=== PATIENT | female | born 1980 | race Caucasian/White ===

== ENCOUNTER 2016-04-25 | Emergency (ER) | payer OTHER ==
--- NOTE | 2016-04-25 18:10 | ED ---
General Adult HPI - General Chief complaint: Recheck/Abnormal Lab/Rx Stated complaint: Med refill/dizzy Time Seen by Provider: 04/25/16 18:03 Source: patient, RN notes reviewed Mode of arrival: ambulatory Limitations: no limitations - History of Present Illness Initial comments: 36-year-old female presents emergency department for medication refill. Patient states she is out of her Lexapro. Patient states she started having withdrawal symptoms from this. Patient states she feels dizzy on occasion and some nausea. Patient denies any headache, focal weakness. Patient states that she is no suicidal or homicidal thoughts. She states she's been Lexapro for one year and has been stable. Patient states that without a she's been unable to get a refill from her primary care doctor. Patient states that she is only here for medication refill. - Related Data Home Medications Medication Instructions Recorded Confirmed Escitalopram [Lexapro] 20 mg PO DAILY 04/25/16 04/25/16 Previous Rx's Medication Instructions Recorded Escitalopram [Lexapro] 20 mg PO DAILY #14 tablet 04/25/16 Allergies Allergy/AdvReac Type Severity Reaction Status Date / Time No Known Allergies Allergy Verified 04/25/16 17:33 Review of Systems ROS Statement: Those systems with pertinent positive or pertinent negative responses have been documented in the HPI. ROS Other: All systems not noted in ROS Statement are negative. Past Medical History Past Medical History: No Reported History Past Surgical History: No Surgical Hx Reported Past Psychological History: Anxiety, Depression Smoking Status: Never smoker Past Alcohol Use History: Daily Past Drug Use History: None Reported General Exam General appearance: alert, in no apparent distress Head exam: Present: atraumatic, normocephalic, normal inspection Eye exam: Present: normal appearance, PERRL, EOMI. Absent: scleral icterus, conjunctival injection, periorbital swelling ENT exam: Present: normal exam, normal oropharynx, mucous membranes moist, TM's normal bilaterally, normal external ear exam Neck exam: Present: normal inspection, full ROM. Absent: tenderness, meningismus, lymphadenopathy Respiratory exam: Present: normal lung sounds bilaterally. Absent: respiratory distress, wheezes, rales, rhonchi, stridor Cardiovascular Exam: Present: regular rate, normal rhythm, normal heart sounds. Absent: systolic murmur, diastolic murmur, rubs, gallop, clicks GI/Abdominal exam: Present: soft, normal bowel sounds. Absent: distended, tenderness, guarding, rebound, rigid Extremities exam: Present: normal inspection, full ROM, normal capillary refill. Absent: tenderness, pedal edema, joint swelling, calf tenderness Neurological exam: Present: alert, oriented X3, CN II-XII intact, reflexes normal. Absent: motor sensory deficit Psychiatric exam: Present: normal affect, normal mood Skin exam: Present: warm, dry, intact, normal color. Absent: rash Course Vital Signs 04/25/16 17:30 Temperature 97.9 F Pulse Rate 82 Respiratory 18 Rate Blood Pressure 159/95 O2 Sat by Pulse 98 Oximetry Medical Decision Making - Medical Decision Making Patient she'll female presented for medication refill. Patient is having some withdrawal symptoms from medication. Patient is does not want any testing. Patient will be given prescription and discharge. Disposition Clinical Impression: Encounter for medication refill, Medication withdrawal Disposition: HOME SELF-CARE Condition: Stable Instructions: Medicine Refill (ED) Additional Instructions: Please return to the Emergency Department if symptoms worsen or any other concerns. Prescriptions: Escitalopram [Lexapro] 20 mg PO DAILY #14 tablet Referrals: Robert Mahan MD [Primary Care Provider] - 1-2 days Time of Disposition: 18:10
== END 2016-04-25 18:25 | disposition home or self-care (01) ==
CPT/HCPCS: 99283

== ENCOUNTER 2016-05-29 15:19 | Emergency (ER) | payer OTHER ==
[2016-05-29 15:32] VITALS: RESP 16
[2016-05-29] MEDS ORDERED: SODIUM CHLORIDE 0.9% 1,000 ML IV STA (15:38)
--- NOTE | 2016-05-29 15:47 | ED ---
Abdominal Pain HPI - General Chief Complaint: Abdominal Pain Stated Complaint: Abd Pain/8 weeks Time Seen by Provider: 05/29/16 15:32 Source: patient, RN notes reviewed Mode of arrival: ambulatory Limitations: no limitations - History of Present Illness Initial Comments: 36 yo female presents to the ER with cc of left lower quadrant abdominal pain. Patient states she is currently . . Patient states she woke up with the pain. Patient does not know how far along she is. Patient states she was concerned due to the pain so she thought she should be seen. Patient states she is not currently having any other symptoms at this time. Pain is sharp and mild. No radiation. constant. worse to touch. Patient denies any recent fever, chills, shortness of breath, chest pain, back pain, nausea vomiting, numbness or tingling, dysuria or hematuria, constipation or diarrhea, headaches or visual changes, or any other current symptoms. - Related Data Home Medications Medication Instructions Recorded Confirmed Escitalopram [Lexapro] 20 mg PO DAILY 04/25/16 05/29/16 Omeprazole 20 mg PO DAILY 05/29/16 05/29/16 Allergies Allergy/AdvReac Type Severity Reaction Status Date / Time No Known Allergies Allergy Verified 05/29/16 15:44 Review of Systems ROS Statement: Those systems with pertinent positive or pertinent negative responses have been documented in the HPI. ROS Other: All systems not noted in ROS Statement are negative. Past Medical History Past Medical History: No Reported History Past Surgical History: No Surgical Hx Reported Past Psychological History: Anxiety, Depression Smoking Status: Never smoker Past Alcohol Use History: None Reported Past Drug Use History: None Reported General Exam - General Exam Comments Initial Comments: General: The patient is awake and alert, in no distress, and does not appear acutely ill. Eye: Pupils are equal, round and reactive to light, extra-ocular movements are intact; there is normal conjunctiva bilaterally. No signs of icterus. Ears, nose, mouth and throat: There are moist mucous membranes. Neck: The neck is supple, there is no tenderness. Cardiovascular: There is a regular rate and rhythm. No murmur, rub or gallop is appreciated. Respiratory: Lungs are clear to auscultation, respirations are non-labored, breath sounds are equal. No wheezes, stridor, rales, or rhonchi. Gastrointestinal: Soft, non-distended, mild tenderness in LLQ of the abdomen without masses or organomegaly noted. There is no rebound or guarding present. No CVA tenderness. Bowel sounds are unremarkable. Back: There is no tenderness to palpation in the midline. There is no obvious deformity. No rashes noted. Musculoskeletal: Normal ROM, no tenderness, There is no pedal edema. There is no calf tenderness or swelling. Sensation intact. Pulses equal bilaterally 2+. Neurological: CN II-XII intact, There are no obvious motor or sensory deficits. Coordination appears grossly intact. Speech is normal. Skin: Skin is warm and dry and no rashes or lesions are noted. Psychiatric: Cooperative, appropriate mood & affect, normal judgment. Limitations: no limitations Course Vital Signs 05/29/16 15:28 Temperature 97.8 F Pulse Rate 71 Respiratory 16 Rate Blood Pressure 142/83 O2 Sat by Pulse 99 Oximetry Medical Decision Making - Medical Decision Making 36-year-old female presents to the emergency department complaining of abdominal pain in . At this time ultrasound was reviewed that does show a IUP. This time patient does have mildly elevated liver enzymes. We discussed the patient. We did discuss fine up with PRIVATE INQUIRY AGENT for reevaluation of this. Patient stated that she understood all questions were answered. She'll be discharged. - Lab Data Result diagrams: 05/29/16 15:56 05/29/16 15:56 Lab Results 05/29/16 05/29/16 05/29/16 Range/Units 15:56 15:56 15:56 WBC 8.1 (3.8-10.6) k/uL RBC 4.20 (3.80-5.40) m/uL Hgb 13.0 (11.4-16.0) gm/dL Hct 39.0 (34.0-46.0) % MCV 92.8 (80.0-100.0) fL MCH 30.9 (25.0-35.0) pg MCHC 33.3 (31.0-37.0) g/dL RDW 13.7 (11.5-15.5) % Plt Count 230 (150-450) k/uL Neutrophils % 66 % Lymphocytes % 26 % Monocytes % 4 % Eosinophils % 1 % Basophils % 0 % Neutrophils # 5.4 (1.3-7.7) k/uL Lymphocytes # 2.1 (1.0-4.8) k/uL Monocytes # 0.3 (0-1.0) k/uL Eosinophils # 0.1 (0-0.7) k/uL Basophils # 0.0 (0-0.2) k/uL Sodium 141 (137-145) mmol/L Potassium 4.2 (3.5-5.1) mmol/L Chloride 101 (98-107) mmol/L Carbon Dioxide 27 (22-30) mmol/L Anion Gap 13 mmol/L BUN 9 (7-17) mg/dL Creatinine 0.63 (0.52-1.04) mg/dL Est GFR (MDRD) Af Amer >60 (>60 ml/min/1.73 sqM) Est GFR (MDRD) Non-Af >60 (>60 ml/min/1.73 sqM) Glucose 91 (74-99) mg/dL Calcium 9.2 (8.4-10.2) mg/dL Total Bilirubin 0.5 (0.2-1.3) mg/dL AST 115 H (14-36) U/L ALT 65 H (9-52) U/L Alkaline Phosphatase 94 (38-126) U/L Total Protein 7.5 (6.3-8.2) g/dL Albumin 4.3 (3.5-5.0) g/dL Urine Color Yellow Urine Appearance Cloudy H (Clear) Urine pH 6.5 (5.0-8.0) Ur Specific [place] 1.016 (1.001-1.035) Urine Protein Negative (Negative) Urine Glucose (UA) Negative (Negative) Urine Ketones Negative (Negative) Urine Blood Negative (Negative) Urine Nitrate Negative (Negative) Urine Bilirubin Negative (Negative) Urine Urobilinogen <2.0 (<2.0) mg/dL Ur Leukocyte Esterase Trace H (Negative) Urine WBC 2 (0-5) /hpf Ur Squamous Epith Cells 11 H (0-4) /hpf Urine Mucus Rare H (None) /hpf - Radiology Data Radiology results: report reviewed, image reviewed Disposition Clinical Impression: Abdominal pain complicating , Elevated liver enzymes Disposition: HOME SELF-CARE Condition: Stable Instructions: Abdominal Pain in (ED) Additional Instructions: Please use medication as discussed. Please follow up with family doctor if symptoms have not improved over the next two days. Please return to the emergency room if your symptoms increase or worsen or for any other concerns. Referrals: Robert Mahan MD [Primary Care Provider] - 1-2 days Time of Disposition: 16:45
[2016-05-29 16:07] LABS: Appearance,Urine Cloudy (Clear); Bilirubin,Urine Negative (Negative); Glucose,Urine (UA) Negative (Negative); Ketones,Urine Negative (Negative); Leukocyte Esterase,Urine Trace (Negative); Mucus,Urine Rare /hpf; Nitrite,Urine Negative (Negative); PH, Urine 6.5 (5.0-8.0); Particle Count 2622; Protein,Urine Negative (Negative); Specific Gravity,Urine 1.016 (1.001-1.035); Squamous Epithelial Cell,Urine 11 /hpf (0-4); UA Billing (MACRO vs. MICRO) MICRO; Urobilinogen,Urine <2.0 mg/dL (<2.0); WBC,Urine 2 /hpf (0-5)
[2016-05-29 16:08] LABS: Basophils % (A) 0 %; CHCM 34.7; Eosinophils # (A) 0.1 k/uL (0-0.7); Eosinophils % (A) 1 %; HDW 2.48; Luc # (Auto) 0.17; Luc % (Auto) 2; Lymphocytes # (A) 2.1 k/uL (1.0-4.8); Lymphocytes % (A) 26 %; MCH 30.9 pg (25.0-35.0); MCHC 33.3 g/dL (31.0-37.0); MCV 92.8 fL (80.0-100.0); Mean Platelet Volume 6.3; Monocytes # (A) 0.3 k/uL (0-1.0); Monocytes % (A) 4 %; Neutrophils # (A) 5.4 k/uL (1.3-7.7); Neutrophils % (A) 66 %; RDW 13.7 % (11.5-15.5); WBC 8.1 k/uL (3.8-10.6); WBC (Perox) 8.19
[2016-05-29 16:16] LABS: ALT 65 U/L (9-52); AST 115 U/L (14-36); Alkaline Phosphatase 94 U/L (38-126); Anion Gap 13 mmol/L; Blood Urea Nitrogen 9 mg/dL (7-17); Calcium 9.2 mg/dL (8.4-10.2); Carbon Dioxide 27 mmol/L (22-30); Chloride 101 mmol/L (98-107); Glucose 91 mg/dL (74-99); Non-African American GFR(MDRD) >60 (>60 ml/min/1.73 sqM); Potassium 4.2 mmol/L (3.5-5.1); Sodium 141 mmol/L (137-145); Total Bilirubin 0.5 mg/dL (0.2-1.3); Total Protein 7.5 g/dL (6.3-8.2)
--- NOTE | 2016-05-29 16:34 | US ---
EXAMINATION TYPE: US OB <= 14 wk fetus DATE OF EXAM: 05/29/2016 4:18 PM COMPARISON: NONE CLINICAL HISTORY: Pain. LLQ pain with EXAM PERFORMED: EXAM MEASUREMENTS: GESTATIONAL AGE / DATING Physician Established: not established Dates by LMP: unsure of dates Dates by First Scan: this is first scan Dates by Current Scan for: (6 weeks/1 days) EDC: 01/21/2017 MATERNAL ANATOMY Uterus: 10.9 x 5.3 x 6.8 cm Right Ovary: 2.6 x 1.6 x 1.8 cm Left Ovary: 2.9 x 2.0 x 1.9 cm Post CDS / Adnexa: wnl Presence of free fluid: none GESTATION / SURVEY CRL: 0.4 cm (6 weeks/1 days) MSD: 1.8cm (6 weeks/4 days) Yolk Sac (normal less than 6mm): 0.3 cm Heart Rate: 116 bpm Rhythm: Normal IUP: Viable IUP Date of LMP: unknown Beta HcG (if available): not available TECHNOLOGIST IMPRESSION: single viable IUP IMPRESSION: The ultrasound gestational age is 6 weeks 1 day. I see no complicating process.
[2016-05-29 17:00] LABS: HCG,Quantitative Serum 19780.7 mIU/mL
[2016-05-29 17:27] VITALS: BP 151/80; PULSE 73; TEMP 98.2
== END 2016-05-29 17:38 | disposition home or self-care (01) ==
LOC: EC 15:19
DX: O26.891 Other specified pregnancy related conditions, first trimester (principal); R74.8 Abnormal levels of other serum enzymes; R10.32 Left lower quadrant pain; O99.341 Other mental disorders complicating pregnancy, first trimester; F32.9 Major depressive disorder, single episode, unspecified; F41.9 Anxiety disorder, unspecified; Z3A.01 Less than 8 weeks gestation of pregnancy; Z79.899 Other long term (current) drug therapy
CPT/HCPCS: 36415; 76801; 80053; 81001; 84702; 85025; 86900; 86901; 87086; 96360; 99284

== ENCOUNTER → 2016-08-31 | Outpatient (CLI) | payer OTHER ==
[2016-08-31 13:38] LABS: CH 31.7; CHCM 34.4; HCT 34.4 % (34.0-46.0); HDW 2.94; HGB 11.4 gm/dL (11.4-16.0); MCH 30.6 pg (25.0-35.0); MCV 92.7 fL (80.0-100.0); Mean Platelet Volume 6.4; RBC 3.71 m/uL (3.80-5.40); RDW 13.2 % (11.5-15.5); WBC 8.3 k/uL (3.8-10.6)
[2016-08-31 14:00] LABS: Glucose 95 mg/dL (74-99); Non-African American GFR(MDRD) >60 (>60 ml/min/1.73 sqM)
[2016-08-31 14:31] LABS: Hepatitis B Surface Ag Index 0.06
[2016-09-01 07:17] LABS: HIV-1/HIV-2 Ab Screen NONREAC (NON REAC)
[2016-09-01 07:25] LABS: Toxoplasma Antibody (IgG) <3.0 IU/mL (<7.2)
== END | disposition home or self-care (01) ==
LOC: LABWHC1 12:21
PROVIDERS: ATTEND Obstetrics & Gynecology
DX: Z34.92 Encounter for supervision of normal pregnancy, unspecified, second trimester (principal)
CPT/HCPCS: 36415; 82565; 82947; 85027; 86762; 86777; 86778; 86780; 86850; 86900; 86901; 87340; 87389

== ENCOUNTER → 2016-11-24 | Outpatient (CLI) | payer OTHER ==
[2016-11-24 17:03] LABS: CH 29.5; CHCM 33.3; HCT 31.6 % (34.0-46.0); HDW 3.09; HGB 10.4 gm/dL (11.4-16.0); MCH 29.4 pg (25.0-35.0); MCHC 32.9 g/dL (31.0-37.0); MCV 89.3 fL (80.0-100.0); Mean Platelet Volume 7.4; RBC 3.54 m/uL (3.80-5.40); RDW 13.8 % (11.5-15.5); WBC 8.7 k/uL (3.8-10.6)
[2016-11-24 19:15] LABS: Hemoglobin A1C 5.5 % (4.2-6.1)
== END | disposition home or self-care (01) ==
LOC: LABWHC1 16:26
PROVIDERS: ATTEND Obstetrics & Gynecology
DX: Z36 Encounter for antenatal screening of mother (principal); Z3A.00 Weeks of gestation of pregnancy not specified
CPT/HCPCS: 36415; 83036; 85027

== ENCOUNTER → 2016-12-10 | Outpatient (CLI) | payer OTHER ==
--- NOTE | 2016-12-10 14:05 | US ---
EXAMINATION TYPE: US OB >= 14 wk fetus DATE OF EXAM: 12/10/2016 COMPARISON: 05/29/2016 CLINICAL HISTORY: O28.8 MITALI BORDERLINE LOW TECHNIQUE: Transabdominal (TA) GESTATIONAL AGE / DATING Physician Established: Patient unsure Dates by LMP: unknown Dates by First Scan: (34 weeks/0 days) EDC: 01/21/17 Dates by Current Scan: (35 weeks/6 days) EDC: 01/08/17 SURVEY IUP: Single PLACENTA: Fundal PREVIA: No Previa MITALI: 7.7 cm CERVICAL LENGTH (transabdominal: norm > 3.0cm): Technologist forgot to measure, office phoned, left message with Janalakshmi at 1:47 to send patient back after her appointment for measurement if needed. Cervix is documented as 3.5 cm, within normal limits. BIOMETRY PRESENTATION: Vertex LIE: Longitudinal BPD: 8.5 cm 34 weeks / 2 days HC: 31.2 cm 35 weeks / 0 days AC: 32.2 cm 36 weeks / 1 days FL: 7.4 cm 38 weeks / 0 days ESTIMATED WEIGHT IN GRAMS: 2880 grams ESTIMATED WEIGHT IN LBS/OZS: 6 lbs. 6 oz. WEIGHT PERCENTAGE BASED ON ESTABLISHED DATES: 95% HC/AC: 0.97 FL/AC: 23 HEART RATE: 152 bpm RHYTHM: Normal MATERNAL WALL MEASUREMENT: 4.0 cm from skin to anterior uterine wall (if exam limited due to body hab itus). Office also aware of low MITALI, spoke with Venessa at 1:35pm. IMPRESSION: 1. Borderline oligohydramnios with MITALI of 7.7. 2. Single live intrauterine with a sonographic age of 35 weeks and 6 days and estimated yudith e of delivery of 01/08/2017 which is slightly discordant with the first exam, however menstrual age is unknown.
== END ==
LOC: RADUSWWP 12:58
PROVIDERS: ATTEND Obstetrics & Gynecology
DX: O41.03X0 Oligohydramnios, third trimester, not applicable or unspecified (principal); Z3A.35 35 weeks gestation of pregnancy
CPT/HCPCS: 76805

== ENCOUNTER → 2016-12-21 | Outpatient (CLI) | payer OTHER ==
--- NOTE | 2016-12-21 17:12 | US ---
EXAMINATION TYPE: US OB >= 14 wk fetus DATE OF EXAM: 12/21/2016 COMPARISON: 05/29/2016 CLINICAL HISTORY: O28.8 ABN Finding On Screening/ O36.63XO TECHNIQUE: Transabdominal (TA) GESTATIONAL AGE / DATING Physician Established: (35 weeks/4 days) EDC: 01/21/2017 Dates by LMP: unknown Dates by First Scan: (37 weeks/3 days) EDC: 01/08/2017 Dates by Current Scan: (36 weeks/6 days) EDC: 01/12/2017 SURVEY IUP: Single PLACENTA: Fundal PREVIA: No Previa MITALI: 8.8 cm Normal CERVICAL LENGTH (transabdominal: norm > 3.0cm): 3.7 cm BIOMETRY PRESENTATION: Vertex BPD: 8.6 cm 34 weeks / 5 days HC: 32.5 cm 36 weeks / 6 days AC: 33.4 cm 37 weeks / 3 days FL: 7.5 cm 38 weeks / 3 days ESTIMATED WEIGHT IN GRAMS: 3141 grams ESTIMATED WEIGHT IN LBS/OZS: 6 lbs. 15 oz. WEIGHT PERCENTAGE BASED ON ESTABLISHED DATES: 89% HC/AC: 0.9 Normal FL/AC: 22% Normal HEART RATE: 133 bpm RHYTHM: Normal growth according to dates IMPRESSION: The fetus is large and 89 percentile by weight. The possibility of mild macrosomia should be consider ed.
== END | disposition home or self-care (01) ==
LOC: RADUSWWP 16:15
PROVIDERS: ATTEND Obstetrics & Gynecology
DX: O36.63X0 Maternal care for excessive fetal growth, third trimester, not applicable or unspecified (principal); Z3A.37 37 weeks gestation of pregnancy
CPT/HCPCS: 76805

== ENCOUNTER → 2017-10-13 | Outpatient (CLI) | payer OTHER | END | disposition home or self-care (01) | LOC: LABWHC1 14:11 | PROVIDERS: ATTEND Pathology Anatomic Pathology & Clinical Pathology | DX: Z02.81 Encounter for paternity testing (principal) | CPT/HCPCS: 36415 ==

== ENCOUNTER 2018-03-07 16:45 | Emergency (ER) | payer OTHER ==
[2018-03-07 17:08] VITALS: TEMP 98.3
--- NOTE | 2018-03-07 19:06 | ED ---
General Adult HPI - General Chief complaint: Extremity Injury, Lower Stated complaint: Fell hurt both ankles Source: patient, RN notes reviewed Mode of arrival: wheelchair Limitations: no limitations - History of Present Illness Initial comments: This is a 38-year-old female who presents emergency Department complaining of bilateral ankle pain. Patient states she tripped on stairs and twisted both of her ankles. Patient states the medial aspect of both ankles are tender she states the right is worse in the left even though the left appears to be more swollen she states is chronically swollen from a previous injury. Patient denies any upper leg pain or knee pain. Patient denies hitting her head or neck pain patient denies any other complaints at this time. - Related Data Home Medications Medication Instructions Recorded Confirmed Omeprazole 40 mg PO DAILY 03/07/18 03/07/18 Allergies Allergy/AdvReac Type Severity Reaction Status Date / Time No Known Allergies Allergy Verified 03/07/18 19:15 Review of Systems ROS Statement: Those systems with pertinent positive or pertinent negative responses have been documented in the HPI. ROS Other: All systems not noted in ROS Statement are negative. Past Medical History Past Medical History: No Reported History History of Any Multi-Drug Resistant Organisms: None Reported Past Surgical History: No Surgical Hx Reported Past Anesthesia/Blood Transfusion Reactions: No Reported Reaction Past Psychological History: Anxiety, Depression Smoking Status: Former smoker Past Alcohol Use History: None Reported Past Drug Use History: None Reported - Past Family History Father History Unknown: Yes Family Medical History: No Reported History General Exam - General Exam Comments Initial Comments: GENERAL Patient is well-developed and well-nourished. Patient is in mild distress. EYES Patient's pupils are equal and round. Extraocular motion is intact SKIN Unremarkable NEURO The patient is alert and oriented 3 PYSCH Patient has normal interpersonal interactions. MUSCULOSKELETAL Bilateral lateral malleolus tenderness. There is some swelling bilaterally. No pain in the foot no pain in the proximal leg no pain in the knee Limitations: no limitations Course Vital Signs 03/07/18 17:06 Temperature 98.3 F Pulse Rate 90 Respiratory 20 Rate Blood Pressure 138/96 O2 Sat by Pulse 100 Oximetry Medical Decision Making - Medical Decision Making X-rays of both ankle showed no acute fracture or dislocation. Disposition Clinical Impression: Ankle sprain Disposition: HOME SELF-CARE Condition: Good Instructions: Ankle Sprain (ED) Additional Instructions: Patient should take Motrin and Tylenol when necessary for pain Is patient prescribed a controlled substance at d/c from ED?: No Referrals: Robert Mahan MD [Primary Care Provider] - 1-2 days Time of Disposition: 20:36
[2018-03-07] MEDS ORDERED: IBUPROFEN 600 MG TAB PO STA (19:07)
--- NOTE | 2018-03-07 20:08 | XR ---
PROCEDURE: XR ankle complete bilateral total 6 views DATE AND TIME: 03/07/2018 7:16 PM CLINICAL INDICATION: PH[facility] Pain after injury TECHNIQUE: Department protocol. COMPARISON: None RIGHT ANKLE FINDINGS: There is no fracture or malalignment. The soft tissues are unremarkable. LEFT ANKLE FINDINGS: There is no fracture or malalignment. The soft tissues are unremarkable. IMPRESSION: NO ACUTE PROCESS, BILATERAL ANKLES.
[2018-03-07 21:04] VITALS: BP 148/90; PULSE 80; RESP 16
== END 2018-03-07 21:00 | disposition home or self-care (01) ==
LOC: EC 16:45
DX: S93.402A Sprain of unspecified ligament of left ankle, initial encounter (principal); S93.401A Sprain of unspecified ligament of right ankle, initial encounter; Z87.891 Personal history of nicotine dependence; Z79.899 Other long term (current) drug therapy; X50.1XXA Overexertion from prolonged static or awkward postures, initial encounter; Y92.009 Unspecified place in unspecified non-institutional (private) residence as the place of occurrence of the external cause
CPT/HCPCS: 99283

== ENCOUNTER → 2018-05-03 | Outpatient (CLI) | payer OTHER ==
--- NOTE | 2018-05-03 13:34 | US ---
EXAMINATION TYPE: US abdomen complete DATE OF EXAM: 05/03/2018 COMPARISON: NONE CLINICAL HISTORY: I51.7 cardiomegaly R94.5 Abn results of LFT. EXAM MEASUREMENTS: Liver Length: 19.4 cm Gallbladder Wall: 0.1 cm CBD: 0.3 cm Spleen: 11.6 cm Right Kidney: 13.0 x 4.5 x 5.2 cm Left Kidney: 11.4 x 5.1 x 4.3 cm Patient of very large body habitus, technically difficult and limited study. Pancreas: Tail obscured by overlying bowel gas Liver: Increased attenuation, decreased visualization of vessels suggestive of fatty infiltrate, hep atomegaly Gallbladder: wnl Evidence for sonographic Grant's sign: no CBD: wnl Spleen: wnl Right Kidney: No hydronephrosis or masses seen Left Kidney: No hydronephrosis or masses seen Upper IVC: wnl Abd Aorta: distal and bifurcation obscured by overlying bowel gas The intrahepatic portion of the IVC and proximal abdominal aorta are within normal limits. There is no evidence of cholelithiasis. Common bile duct is unremarkable. The visualized portions of the geiger creas are homogenous. The spleen is unremarkable. Kidneys are symmetric and free of hydronephrosis. No renal lesions are seen. IMPRESSION: Sonographic findings most commonly related to hepatic steatosis appearing moderate in deg ree. Correlate with liver function test results.
--- NOTE | 2018-05-03 19:08 | ECHOF ---
Referral Reason:I51.7 Cardiomegally R94.5 Abn results of LFT MEASUREMENTS -------- HEIGHT: 175.3 cm WEIGHT: 113.4 kg BP: RVIDd: 2.2 cm (< 3.3) IVSd: 1.2 cm (0.6 - 1.1) LVIDd: 5.4 cm (3.9 - 5.3) LVPWd: 1.2 cm (0.6 - 1.1) IVSs: 1.5 cm LVIDs: 3.6 cm LVPWs: 1.6 cm LAESV Index (A-L): 25.23 ml/m Ao Diam: 3.5 cm (2.0 - 3.7) AV Cusp: 2.1 cm (1.5 - 2.6) LA Diam: 3.0 cm (2.7 - 3.8) MV EXCURSION: 18.048 mm (> 18.000) MV EF SLOPE: 125 mm/s (70 - 150) EPSS: 0.5 cm MV E Louie: 0.73 m/s MV DecT: 248 ms MV A Louie: 0.65 m/s MV E/A Ratio: 1.11 RAP: 5.00 mmHg RVSP: 12.04 mmHg FINDINGS -------- Sinus rhythm. This was a technically adequate study. The left ventricular size is normal. There is mild concentric left ventricular hypertrophy. Overa ll left ventricular systolic function is normal with, an EF between 55 - 60 %. The right ventricle is normal in size and function. Normal LA size by volume 22+/-6 ml/m2. The right atrium is normal in size. The aortic valve is trileaflet, and appears structurally normal. No aortic stenosis or regurgitation. The mitral valve leaflets are mildly thickened. There is trace to mild mitral regurgitation. Trace tricuspid regurgitation present. Right ventricular systolic pressure is normal at < 35 mmHg. There is no evidence of pulmonary hypertension. Trace/mild (physiologic) pulmonic regurgitation. The aortic root size is normal. Normal inferior vena cava with normal inspiratory collapse consistent with estimated right atrial pre ssure of 5 mmHg. There is no pericardial effusion. CONCLUSIONS -------- 1. Sinus rhythm. 2. This was a technically adequate study. 3. The left ventricular size is normal. 4. There is mild concentric left ventricular hypertrophy. 5. Overall left ventricular systolic function is normal with, an EF between 55 - 60 %. 6. Normal LA size by volume 22+/-6 ml/m2. 7. The aortic valve is trileaflet, and appears structurally normal. No aortic stenosis or regurgitati on. 8. The mitral valve leaflets are mildly thickened. 9. There is trace to mild mitral regurgitation. 10. Trace tricuspid regurgitation present. 11. Right ventricular systolic pressure is normal at < 35 mmHg. 12. There is no evidence of pulmonary hypertension. 13. Trace/mild (physiologic) pulmonic regurgitation. 14. The aortic root size is normal. 15. There is no pericardial effusion. COAL DIGGER: Freddie Rendon RDCS
== END | disposition home or self-care (01) ==
LOC: RADUSMAIN 12:11
PROVIDERS: ATTEND Family Medicine
DX: I34.0 Nonrheumatic mitral (valve) insufficiency (principal); R94.5 Abnormal results of liver function studies
CPT/HCPCS: 76700; 93306

== ENCOUNTER → 2020-01-18 | Outpatient (CLI) | payer OTHER ==
[2020-01-18 16:03] LABS: Appearance,Urine Clear (Clear); Bacteria,Urine Rare /hpf; Bilirubin,Urine Negative (Negative); Blood,Urine Negative (Negative); Color,Urine Yellow; Glucose,Urine (UA) Negative (Negative); Ketones,Urine Negative (Negative); Leukocyte Esterase,Urine Negative (Negative); Mucus,Urine Moderate /hpf; Nitrite,Urine Negative (Negative); PH, Urine 6.5 (5.0-8.0); Protein,Urine 1+ (Negative); RBC,Urine 1 /hpf (0-5); Specific Gravity,Urine 1.022 (1.001-1.035); Squamous Epithelial Cell,Urine 4 /hpf (0-4); WBC,Urine 1 /hpf (0-5)
--- NOTE | 2020-01-18 17:00 | XR ---
EXAMINATION TYPE: XR lumbar spine 2 or 3V DATE OF EXAM: 01/18/2020 COMPARISON: None HISTORY: Pain radiating right side TECHNIQUE: Three-view lumbar spine FINDINGS: There appears to be a transitional thoracic vertebral level. There 5 lumbar-type vertebral bodies. Pedicles are intact. Disc heights are preserved. Vertebral body heights are preserved. IMPRESSION: 1. Normal three-view lumbar spine
--- NOTE | 2020-01-18 17:02 | XR ---
EXAMINATION TYPE: XR thoracic spine complete DATE OF EXAM: 01/18/2020 COMPARISON: Lumbar spine same date HISTORY: Back pain TECHNIQUE: 3 view thoracic spine FINDINGS: There are 12 thoracic type vertebral bodies. The L1 level appears to be a transitional thor acic type vertebral body. Pedicles are intact. Disc heights are preserved. Vertebral body heights are preserved. Alignment is normal. IMPRESSION: 1. Normal thoracic spine
== END | disposition home or self-care (01) ==
LOC: LABWHC1 14:44
PROVIDERS: ATTEND Physician Assistant
DX: S23.3XXA Sprain of ligaments of thoracic spine, initial encounter (principal); S39.012A Strain of muscle, fascia and tendon of lower back, initial encounter; N91.2 Amenorrhea, unspecified
CPT/HCPCS: 72072; 72100; 81001; 81025

== ENCOUNTER 2020-03-10 06:37 | Emergency (ER) | payer OTHER ==
[2020-03-10] MEDS ORDERED: SODIUM CHLORIDE 0.9% 500 ML 500 ML IV ONE (06:59)
[2020-03-10] MEDS ORDERED: MORPHINE SULFATE 2 MG/ML SYRINGE IVP STA (07:00)
--- NOTE | 2020-03-10 07:08 | ED ---
Abdominal Pain HPI - General Chief Complaint: Abdominal Pain Stated Complaint: Abdominal pain Time Seen by Provider: 03/10/20 06:53 Source: patient Mode of arrival: wheelchair Limitations: no limitations - History of Present Illness Initial Comments: 40-year-old female presenting today for chief complaint of lower pelvic pain. Patient states is around the time she she menstruates she has not bleeding. Patient states that it is a cramping sensation such as menstrual cramping. She denies any vaginal discharge, fevers. States she did puke once due to the pain, but does not currently feel nauseated. Denies diarrhea. Denies upper abdominal pain, chest pain or SOB. Denies concern for . Patient states as she has been getting older her cramping has been getting worse. Patient denies additional complaints. Upon arrival she appears well nontoxic in no acute distress. - Related Data Home Medications Medication Instructions Recorded Confirmed RX: Omeprazole 40 mg PO DAILY 03/07/18 03/10/20 RX: FLUoxetine HCL [PROzac] 20 mg PO DAILY 03/10/20 03/10/20 Allergies Allergy/AdvReac Type Severity Reaction Status Date / Time No Known Allergies Allergy Verified 03/10/20 07:34 Review of Systems ROS Statement: Those systems with pertinent positive or pertinent negative responses have been documented in the HPI. ROS Other: All systems not noted in ROS Statement are negative. Past Medical History Past Medical History: No Reported History Additional Past Medical History / Comment(s): fatty liver History of Any Multi-Drug Resistant Organisms: None Reported Past Surgical History: No Surgical Hx Reported Past Anesthesia/Blood Transfusion Reactions: No Reported Reaction Past Psychological History: Anxiety, Depression Smoking Status: Never smoker Past Alcohol Use History: Abuse, Daily Past Drug Use History: None Reported - Past Family History Father History Unknown: Yes Family Medical History: No Reported History General Exam - General Exam Comments Initial Comments: General: The patient is awake and alert, in no distress Eye: Pupils are equal, round and reactive to light, extra-ocular movements are intact. No nystagmus. There is normal conjunctiva bilaterally. No signs of i cterus. Ears, nose, mouth and throat: There are moist mucous membranes and no oral lesions. Neck: The neck is supple, there is no tenderness or JVD. Cardiovascular: There is a regular rate and rhythm. No murmur, rub or gallop is appreciated. Respiratory: Lungs are clear to auscultation, respirations are non-labored, breath sounds are equal. No wheezes, stridor, rales, or rhonchi. Gastrointestinal: Soft, non-distended, mild mildline tenderness to palpation of abdomen just superior to the mons pubis, no unilateral pain. Abdomen is without masses or organomegaly noted. There is no rebound or guarding present. Musculoskeletal: Normal ROM, no tenderness. Strength 5/5. Sensation intact. Radial pulses equal bilaterally 2+. Neurological: A&O x 3. CN II-XII intact, There are no obvious motor or sensory deficits. Coordination appears grossly intact. Speech is normal. Skin: Skin is warm and dry and no rashes or lesions are noted. Psychiatric: Cooperative, appropriate mood & affect, normal judgment. Limitations: no limitations Course Vital Signs 03/10/20 03/10/20 06:44 07:30 Temperature 98 F 98.0 F Pulse Rate 77 62 Respiratory 17 14 Rate Blood Pressure 138/93 153/98 O2 Sat by Pulse 95 95 Oximetry - Reevaluation(s) Reevaluation #1: Pt states she is feeling much better after medicine--appears comfortable restin g. 03/10/20 08:06 Reevaluation #2: Pt states she continues to feel well, i discussed the US results and offered CT. Pt states she thinks this is consistent with the time she menstruates and would like to trial going home since there is improvement. 03/10/20 08:30 Medical Decision Making - Medical Decision Making 40yo female presenting pelvic cramping. US (-). No unilateral pain. No leukocytosis. no fevers. patient pain improved, refused CT. Patient denies vaginal discharge, concern for STI, vaginal bleeding. Patient case discussed with Dr. Pelletier who is agreeable to discharge with strict return parameters. Pt tolerating oral intake. - Lab Data Result diagrams: 03/10/20 07:12 03/10/20 07:12 Lab Results 03/10/20 03/10/20 03/10/20 Range/Units 07:12 07:12 07:12 WBC 4.3 (3.8-10.6) k/uL RBC 4.27 (3.80-5.40) m/uL Hgb 11.7 (11.4-16.0) gm/dL Hct 36.3 (34.0-46.0) % MCV 85.0 (80.0-100.0) fL MCH 27.3 (25.0-35.0) pg MCHC 32.2 (31.0-37.0) g/dL RDW 16.3 H (11.5-15.5) % Plt Count 214 (150-450) k/uL MPV 6.6 Neutrophils % 67 % Lymphocytes % 25 % Monocytes % 5 % Eosinophils % 2 % Basophils % 1 % Neutrophils # 2.8 (1.3-7.7) k/uL Lymphocytes # 1.1 (1.0-4.8) k/uL Monocytes # 0.2 (0-1.0) k/uL Eosinophils # 0.1 (0-0.7) k/uL Basophils # 0.0 (0-0.2) k/uL Anisocytosis Slight Sodium (137-145) mmol/L Potassium (3.5-5.1) mmol/L Chloride (98-107) mmol/L Carbon Dioxide (22-30) mmol/L Anion Gap mmol/L BUN (7-17) mg/dL Creatinine (0.52-1.04) mg/dL Est GFR (CKD-EPI)AfAm (>60 ml/min/1.73 sqM) Est GFR (CKD-EPI)NonAf (>60 ml/min/1.73 sqM) Glucose (74-99) mg/dL Calcium (8.4-10.2) mg/dL Total Bilirubin (0.2-1.3) mg/dL AST (14-36) U/L ALT (4-34) U/L Alkaline Phosphatase (38-126) U/L Total Protein (6.3-8.2) g/dL Albumin (3.5-5.0) g/dL Lipase (23-300) U/L Urine Color Yellow Urine Appearance Cloudy H (Clear) Urine pH 6.5 (5.0-8.0) Ur Specific [place] 1.014 (1.001-1.035) Urine Protein Trace H (Negative) Urine Glucose (UA) Negative (Negative) Urine Ketones Negative (Negative) Urine Blood Negative (Negative) Urine Nitrite Negative (Negative) Urine Bilirubin Negative (Negative) Urine Urobilinogen <2.0 (<2.0) mg/dL Ur Leukocyte Esterase Negative (Negative) Urine RBC 1 (0-5) /hpf Urine WBC 3 (0-5) /hpf Ur Squamous Epith Cells 3 (0-4) /hpf Hyaline Casts 1 (0-2) /lpf Urine Mucus Occasional H (None) /hpf Urine HCG, Qual Not Detected (Not Detectd) 03/10/20 03/10/20 Range/Units 07:12 07:12 WBC (3.8-10.6) k/uL RBC (3.80-5.40) m/uL Hgb (11.4-16.0) gm/dL Hct (34.0-46.0) % MCV (80.0-100.0) fL MCH (25.0-35.0) pg MCHC (31.0-37.0) g/dL RDW (11.5-15.5) % Plt Count (150-450) k/uL MPV Neutrophils % % Lymphocytes % % Monocytes % % Eosinophils % % Basophils % % Neutrophils # (1.3-7.7) k/uL Lymphocytes # (1.0-4.8) k/uL Monocytes # (0-1.0) k/uL Eosinophils # (0-0.7) k/uL Basophils # (0-0.2) k/uL Anisocytosis Sodium 141 (137-145) mmol/L Potassium 3.5 (3.5-5.1) mmol/L Chloride 101 (98-107) mmol/L Carbon Dioxide 30 (22-30) mmol/L Anion Gap 10 mmol/L BUN 4 L (7-17) mg/dL Creatinine 0.55 (0.52-1.04) mg/dL Est GFR (CKD-EPI)AfAm >90 (>60 ml/min/1.73 sqM) Est GFR (CKD-EPI)NonAf >90 (>60 ml/min/1.73 sqM) Glucose 202 H (74-99) mg/dL Calcium 9.1 (8.4-10.2) mg/dL Total Bilirubin 0.5 (0.2-1.3) mg/dL AST 162 H (14-36) U/L ALT 40 H (4-34) U/L Alkaline Phosphatase 129 H (38-126) U/L Total Protein 8.4 H (6.3-8.2) g/dL Albumin 4.3 (3.5-5.0) g/dL Lipase 101 (23-300) U/L Urine Color Urine Appearance (Clear) Urine pH (5.0-8.0) Ur Specific [place] (1.001-1.035) Urine Protein (Negative) Urine Glucose (UA) (Negative) Urine Ketones (Negative) Urine Blood (Negative) Urine Nitrite (Negative) Urine Bilirubin (Negative) Urine Urobilinogen (<2.0) mg/dL Ur Leukocyte Esterase (Negative) Urine RBC (0-5) /hpf Urine WBC (0-5) /hpf Ur Squamous Epith Cells (0-4) /hpf Hyaline Casts (0-2) /lpf Urine Mucus (None) /hpf Urine HCG, Qual (Not Detectd) Disposition Clinical Impression: Pelvic pain Disposition: HOME SELF-CARE Condition: Good Instructions (If sedation given, give patient instructions): Nav (ED), Acute Abdominal Pain (ED) Additional Instructions: Please use medication as discussed. Please follow-up with family doctor in the next 2 days, OBGYN in next 2 weeks- you are to return for increasing pain/persistent pain to the ER, or if you develop fevers. Please return to emergency room if the symptoms increase or worsen or for any other concerns. Is patient prescribed a controlled substance at d/c from ED?: No Referrals: Robert Mahan MD [Primary Care Provider] - 1-2 days Time of Disposition: 08:39
[2020-03-10 07:30] LABS: Anisocytosis Slight; Basophils % (A) 1 %; Eosinophils # (A) 0.1 k/uL (0-0.7); Eosinophils % (A) 2 %; HCT 36.3 % (34.0-46.0); HGB 11.7 gm/dL (11.4-16.0); Lymphocytes # (A) 1.1 k/uL (1.0-4.8); Lymphocytes % (A) 25 %; MCH 27.3 pg (25.0-35.0); MCHC 32.2 g/dL (31.0-37.0); Mean Platelet Volume 6.6; Monocytes # (A) 0.2 k/uL (0-1.0); Monocytes % (A) 5 %; Neutrophils # (A) 2.8 k/uL (1.3-7.7); Neutrophils % (A) 67 %; Platelet Count 214 k/uL (150-450); RBC 4.27 m/uL (3.80-5.40); RDW 16.3 % (11.5-15.5); WBC 4.3 k/uL (3.8-10.6)
[2020-03-10 07:36] VITALS: RESP 14
[2020-03-10 07:50] LABS: Appearance,Urine Cloudy (Clear); Bilirubin,Urine Negative (Negative); Blood,Urine Negative (Negative); Color,Urine Yellow; Glucose,Urine (UA) Negative (Negative); Hyaline Casts,Urine 1 /lpf (0-2); Ketones,Urine Negative (Negative); Leukocyte Esterase,Urine Negative (Negative); Mucus,Urine Occasional /hpf; Nitrite,Urine Negative (Negative); PH, Urine 6.5 (5.0-8.0); Protein,Urine Trace (Negative); RBC,Urine 1 /hpf (0-5); Specific Gravity,Urine 1.014 (1.001-1.035); Squamous Epithelial Cell,Urine 3 /hpf (0-4); Urobilinogen,Urine <2.0 mg/dL (<2.0); WBC,Urine 3 /hpf (0-5)
[2020-03-10 07:56] LABS: ALT 40 U/L (4-34); AST 162 U/L (14-36); African American GFR (CKD) >90 (>60 ml/min/1.73 sqM); Albumin 4.3 g/dL (3.5-5.0); Alkaline Phosphatase 129 U/L (38-126); Anion Gap 10 mmol/L; Blood Urea Nitrogen 4 mg/dL (7-17); Calcium 9.1 mg/dL (8.4-10.2); Carbon Dioxide 30 mmol/L (22-30); Chloride 101 mmol/L (98-107); Glucose 202 mg/dL (74-99); Non-African American GFR(CKD) >90 (>60 ml/min/1.73 sqM); Potassium 3.5 mmol/L (3.5-5.1); Sodium 141 mmol/L (137-145); Total Bilirubin 0.5 mg/dL (0.2-1.3); Total Protein 8.4 g/dL (6.3-8.2)
--- NOTE | 2020-03-10 08:24 | US ---
EXAMINATION TYPE: US transvaginal DATE OF EXAM: 03/10/2020 COMPARISON: NONE CLINICAL HISTORY: pelvic pain. TECHNIQUE: . Transvaginal sonographic images of the pelvis were acquired. Date of LMP: 01/30/2020 EXAM MEASUREMENTS: Uterus: 9.5 x 4.1 x 4.3 cm Endometrial Stripe: 0.8 cm Right Ovary: 2.1 x 1.3 x 2.0 cm Left Ovary: 2.6 x 1.6 x 1.8 cm 1. Uterus: Anteverted wnl 2. Endometrium: wnl 3. Right Ovary: wnl 4. Left Ovary: Follicle visualized measuring 1.3 cm Spectral, color and waveform doppler imaging shows good arterial and venous flow within the ovaries ; there is no evidence for ovarian torsion. 5. Bilateral Adnexa: wnl 6. Posterior cul-de-sac: wnl IMPRESSION: No significant abnormality appreciated.
[2020-03-10 08:58] VITALS: BP 141/88; PULSE 88; TEMP 98.1
== END 2020-03-10 08:59 | disposition home or self-care (01) ==
LOC: EC 06:37
DX: R10.2 Pelvic and perineal pain (principal); R25.2 Cramp and spasm
CPT/HCPCS: 36415; 80053; 83690; 85025; 81001; 81025; 93975; 76830; 99284; 96374; 96361; J2270

== ENCOUNTER 2020-10-21 11:49 | Emergency (ER) | payer OTHER ==
[2020-10-21 11:53] VITALS: BP 142/86; PULSE 69; RESP 20; TEMP 97.8
--- NOTE | 2020-12-14 15:17 | ED ---
General Adult HPI - General Chief complaint: Needlestick/Exposure Stated complaint: [facility] - needlestick Time Seen by Provider: 10/21/20 12:05 Source: patient Limitations: no limitations - History of Present Illness Initial comments: 40-year-old female presents to the emergency room for a chief complaint of needle stick. Patient states she was working at her client's house and there is a needle from insulin in the sink and it poked her index finger of L hand. Patient has no other complaints at this time including shortness of breath, chest pain, abdominal pain, nausea or vomiting, headache, or visual changes. - Related Data Home Medications Medication Instructions Recorded Confirmed Omeprazole 40 mg PO DAILY 03/07/18 03/10/20 FLUoxetine HCL [PROzac] 40 mg PO DAILY 03/10/20 03/10/20 Allergies Allergy/AdvReac Type Severity Reaction Status Date / Time No Known Allergies Allergy Verified 10/21/20 11:53 Review of Systems ROS Statement: Those systems with pertinent positive or pertinent negative responses have been documented in the HPI. ROS Other: All systems not noted in ROS Statement are negative. Past Medical History Past Medical History: No Reported History Additional Past Medical History / Comment(s): fatty liver History of Any Multi-Drug Resistant Organisms: None Reported Past Surgical History: No Surgical Hx Reported Past Anesthesia/Blood Transfusion Reactions: No Reported Reaction Past Psychological History: Anxiety, Depression Smoking Status: Never smoker Past Alcohol Use History: Abuse, Daily Past Drug Use History: None Reported - Past Family History Father History Unknown: Yes Family Medical History: No Reported History General Exam Limitations: no limitations General appearance: alert Head exam: Present: atraumatic Eye exam: Present: normal appearance, PERRL, EOMI ENT exam: Present: normal exam, mucous membranes moist Neck exam: Present: normal inspection, full ROM. Absent: tenderness Respiratory exam: Present: normal lung sounds bilaterally. Absent: respiratory distress, wheezes Cardiovascular Exam: Present: regular rate, normal rhythm, normal heart sounds Extremities exam: Present: other (No obvious injuries noted from needle.) Course Vital Signs 10/21/20 11:50 Temperature 97.8 F Pulse Rate 69 Respiratory 20 Rate Blood Pressure 142/86 O2 Sat by Pulse 99 Oximetry Medical Decision Making - Medical Decision Making Patient was treated as needle stick exposure in the emergency room. Will continue to follow up with primary care. He'll return here for any worsening symptoms. Disposition Clinical Impression: Needlestick injury of finger Disposition: HOME SELF-CARE Instructions (If sedation given, give patient instructions): Needle Stick Injuries (ED) Is patient prescribed a controlled substance at d/c from ED?: No Referrals: Robert Mahan MD [Primary Care Provider] - 1-2 days Time of Disposition: 15:19
== END 2020-10-21 12:23 | disposition home or self-care (01) ==
LOC: EC 11:49
DX: S61.231A Puncture wound without foreign body of left index finger without damage to nail, initial encounter (principal); F32.9 Major depressive disorder, single episode, unspecified; F41.9 Anxiety disorder, unspecified; Z79.899 Other long term (current) drug therapy; W46.1XXA Contact with contaminated hypodermic needle, initial encounter
CPT/HCPCS: 99282

== ENCOUNTER → 2020-11-05 | Outpatient (CLI) | payer OTHER ==
[2020-11-05 18:13] LABS: Basophils # (A) 0.03 X 10*3/uL (0.00-0.10); Basophils % (A) 0.4 %; Eosinophils # (A) 0.03 X 10*3/uL (0.04-0.35); Eosinophils % (A) 0.4 %; HCT 35.9 % (37.2-46.3); HGB 10.6 g/dL (12.0-15.0); Lymphocytes # (A) 1.22 X 10*3/uL (0.90-5.00); MCH 26.2 pg (27.0-32.0); MCHC 29.5 g/dL (32.0-37.0); MCV 88.6 fL (80.0-97.0); Mean Platelet Volume 10.9 fL (9.5-12.2); Monocytes # (A) 0.59 X 10*3/uL (0.20-1.00); Monocytes % (A) 8.7 %; Neutrophils # (A) 4.88 X 10*3/uL (1.80-7.70); Neutrophils % (A) 72.1 %; Platelet Count 182 X 10*3/uL (140-440); RBC 4.05 X 10*6/uL (4.10-5.20); RDW 16.9 % (11.5-14.5); WBC 6.78 X 10*3/uL (4.50-10.00)
[2020-11-05 20:57] LABS: African American GFR (CKD) 106.9 (60.0-200.0); Albumin 3.9 g/dL (3.80-4.90); Albumin/Globulin Ratio 1.03 (1.60-3.17); Anion Gap 9.8 mmol/L (4.00-12.00); BUN/Creat Ratio 6.25 Ratio (12.00-20.00); Calcium 8.6 mg/dL (8.7-10.3); Carbon Dioxide 29.2 mmol/L (21.6-31.8); Globulin 3.8 g/dL (1.6-3.3); Non-African American GFR(CKD) 92.2 (60.0-200.0); Potassium 4.4 mmol/L (3.5-5.5); Total Protein 7.7 g/dL (6.2-8.2)
== END | disposition home or self-care (01) ==
LOC: LABWHC1 12:37
PROVIDERS: ATTEND Dermatology
DX: L40.0 Psoriasis vulgaris (principal); L40.59 Other psoriatic arthropathy
CPT/HCPCS: 36415; 80053; 85025; 86480

== ENCOUNTER 2021-03-03 10:04 | Outpatient (CLI) | payer OTHER ==
[~2021-03-03 10:04] MED LIST: CASIRIVIMAB (REGN10933) (EUA) 600 MG, IMDEVIMAB (REGN10987) (EUA) 600 MG in SODIUM CHLO... IVPB NR; SODIUM CHLORIDE 0.9% 50 ML IVPB NR; SODIUM CHLORIDE 0.9% 500 ML 500 ML in EMPTY BAG 1 BAG IV PRN
[2021-03-03 11:18] VITALS: RESP 16
[2021-03-03 11:52] VITALS: BP 138/83; PULSE 96; TEMP 97.8
== END 2021-03-03 12:10 ==
LOC: PROCWHC3 10:04
PROVIDERS: ATTEND Family Medicine
DX: U07.1 COVID-19 (principal); E66.9 Obesity, unspecified; E11.9 Type 2 diabetes mellitus without complications; Z87.891 Personal history of nicotine dependence
CPT/HCPCS: 96360; Q0243; M0243

== ENCOUNTER 2022-02-09 10:27 | Emergency (ER) | payer OTHER ==
[2022-02-09 11:04] LABS: Anisocytosis Slight; Basophils % (A) 0 %; Eosinophils # (A) 0.1 k/uL (0-0.7); Eosinophils % (A) 1 %; HCT 34.9 % (34.0-46.0); HGB 10.6 gm/dL (11.4-16.0); Hypochromasia Marked; Lymphocytes # (A) 1.2 k/uL (1.0-4.8); Lymphocytes % (A) 21 %; MCH 24.8 pg (25.0-35.0); MCHC 30.3 g/dL (31.0-37.0); MCV 81.9 fL (80.0-100.0); Mean Platelet Volume 8.1; Microcytosis Slight; Monocytes # (A) 0.3 k/uL (0-1.0); Monocytes % (A) 5 %; Neutrophils # (A) 3.9 k/uL (1.3-7.7); Neutrophils % (A) 70 %; Platelet Count 155 k/uL (150-450); RBC 4.26 m/uL (3.80-5.40); RDW 18.3 % (11.5-15.5); WBC 5.6 k/uL (3.8-10.6)
[2022-02-09 11:13] LABS: ALT 23 U/L (4-34); AST 157 U/L (14-36); African American GFR (CKD) >90 (>60 ml/min/1.73 sqM); Albumin 4.4 g/dL (3.5-5.0); Alkaline Phosphatase 206 U/L (38-126); Anion Gap 16 mmol/L; Blood Urea Nitrogen 4 mg/dL (7-17); Calcium 8.7 mg/dL (8.4-10.2); Carbon Dioxide 25 mmol/L (22-30); Chloride 98 mmol/L (98-107); Glucose 270 mg/dL (74-99); Non-African American GFR(CKD) >90 (>60 ml/min/1.73 sqM); Potassium 3.9 mmol/L (3.5-5.1); Sodium 139 mmol/L (137-145); Total Bilirubin 1.7 mg/dL (0.2-1.3); Total Protein 9.2 g/dL (6.3-8.2)
[2022-02-09] MEDS ORDERED: ONDANSETRON ODT 4 MG TAB PO STA (11:57)
--- NOTE | 2022-02-09 11:57 | ED ---
General Adult HPI - General Chief complaint: Recheck/Abnormal Lab/Rx Stated complaint: headaches, vomiting Time Seen by Provider: 02/09/22 11:40 Source: patient, RN notes reviewed Mode of arrival: ambulatory Limitations: no limitations - History of Present Illness Initial comments: Patient is a pleasant 41-year-old female presenting to the emergency department with concern for carbon monoxide poisoning. Patient was at a client's house yesterday and had concern for gas leak. This was evaluated with positive gas leak in the did evacuate the house. Patient has had headache and nausea since that time. Patient has vomited twice. Symptoms have improved since yesterday when this occurred however not resolved. Patient does estimate this is been ar ound 20 hours now. Patient is a nonsmoker - Related Data Home Medications Medication Instructions Recorded Confirmed Omeprazole 40 mg PO DAILY 03/07/18 03/10/20 FLUoxetine HCL [PROzac] 40 mg PO DAILY 03/10/20 03/10/20 Allergies Allergy/AdvReac Type Severity Reaction Status Date / Time No Known Allergies Allergy Verified 10/21/20 11:53 Review of Systems ROS Statement: Those systems with pertinent positive or pertinent negative responses have been documented in the HPI. ROS Other: All systems not noted in ROS Statement are negative. Constitutional: Denies: fever Eyes: Denies: eye pain ENT: Denies: ear pain Respiratory: Denies: cough Cardiovascular: Denies: chest pain Endocrine: Denies: fatigue Gastrointestinal: Reports: nausea, vomiting. Denies: abdominal pain Genitourinary: Denies: dysuria Musculoskeletal: Denies: back pain Skin: Denies: rash Neurological: Reports: as per HPI, headache. Denies: weakness Past Medical History Past Medical History: No Reported History Additional Past Medical History / Comment(s): fatty liver History of Any Multi-Drug Resistant Organisms: None Reported Past Surgical History: No Surgical Hx Reported Past Anesthesia/Blood Transfusion Reactions: No Reported Reaction Past Psychological History: Anxiety, Depression Smoking Status: Former smoker Past Alcohol Use History: Abuse, Daily Past Drug Use History: None Reported - Past Family History Father History Unknown: Yes Family Medical History: No Reported History General Exam Limitations: no limitations General appearance: alert, in no apparent distress Head exam: Present: normocephalic Eye exam: Present: normal appearance Neck exam: Present: normal inspection. Absent: meningismus Respiratory exam: Present: normal lung sounds bilaterally Cardiovascular Exam: Present: regular rate, normal rhythm GI/Abdominal exam: Present: soft. Absent: tenderness Extremities exam: Present: normal inspection Neurological exam: Present: alert, CN II-XII intact. Absent: motor sensory deficit Psychiatric exam: Present: normal affect, normal mood Skin exam: Present: normal color Course Vital Signs 02/09/22 02/09/22 02/09/22 10:32 12:01 12:24 Temperature 98.3 F 97.8 F Pulse Rate 80 75 Respiratory 18 16 16 Rate Blood Pressure 180/104 157/97 O2 Sat by Pulse 97 98 Oximetry Medical Decision Making - Medical Decision Making Patient reevaluated and updated. Carbon dioxide level is minimally elevated. Patient offered oxygen however refuses. It is unlikely to be therapeutic at this point. - Lab Data Result diagrams: 02/09/22 10:50 02/09/22 10:50 Lab Results 02/09/22 02/09/22 02/09/22 Range/Units 10:50 10:50 11:52 WBC 5.6 (3.8-10.6) k/uL RBC 4.26 (3.80-5.40) m/uL Hgb 10.6 L (11.4-16.0) gm/dL Hct 34.9 (34.0-46.0) % MCV 81.9 (80.0-100.0) fL MCH 24.8 L (25.0-35.0) pg MCHC 30.3 L (31.0-37.0) g/dL RDW 18.3 H (11.5-15.5) % Plt Count 155 (150-450) k/uL MPV 8.1 Neutrophils % 70 % Lymphocytes % 21 % Monocytes % 5 % Eosinophils % 1 % Basophils % 0 % Neutrophils # 3.9 (1.3-7.7) k/uL Lymphocytes # 1.2 (1.0-4.8) k/uL Monocytes # 0.3 (0-1.0) k/uL Eosinophils # 0.1 (0-0.7) k/uL Basophils # 0.0 (0-0.2) k/uL Hypochromasia Marked Anisocytosis Slight Microcytosis Slight Carbon Monoxide, Quant 3.2 (<10.0) % Sodium 139 (137-145) mmol/L Potassium 3.9 (3.5-5.1) mmol/L Chloride 98 (98-107) mmol/L Carbon Dioxide 25 (22-30) mmol/L Anion Gap 16 mmol/L BUN 4 L (7-17) mg/dL Creatinine 0.43 L (0.52-1.04) mg/dL Est GFR (CKD-EPI)AfAm >90 (>60 ml/min/1.73 sqM) Est GFR (CKD-EPI)NonAf >90 (>60 ml/min/1.73 sqM) Glucose 270 H (74-99) mg/dL Calcium 8.7 (8.4-10.2) mg/dL Total Bilirubin 1.7 H (0.2-1.3) mg/dL AST 157 H (14-36) U/L ALT 23 (4-34) U/L Alkaline Phosphatase 206 H (38-126) U/L Total Protein 9.2 H (6.3-8.2) g/dL Albumin 4.4 (3.5-5.0) g/dL Disposition Clinical Impression: Carbon monoxide exposure Disposition: HOME SELF-CARE Condition: Stable Instructions (If sedation given, give patient instructions): Carbon Monoxide Poisoning (ED) Additional Instructions: Please do follow-up with primary care physician next day or 2 for recheck. Return for headache, vomiting or weakness, worsening symptoms or other concerns. Is patient prescribed a controlled substance at d/c from ED?: No Referrals: Robert Mahan MD [Primary Care Provider] - 1-2 days Time of Disposition: 12:33
[2022-02-09 12:25] VITALS: TEMP 97.8
[2022-02-09 13:00] VITALS: BP 165/88; PULSE 80; RESP 18
== END 2022-02-09 12:59 | disposition home or self-care (01) ==
LOC: EC 10:27
DX: T58.91XA Toxic effect of carbon monoxide from unspecified source, accidental (unintentional), initial encounter (principal); Z87.891 Personal history of nicotine dependence
CPT/HCPCS: 36415; 80053; 82375; 85025; 99283

== ENCOUNTER → 2022-10-04 | Outpatient (CLI) | payer OTHER ==
[2022-10-04 14:53] LABS: African American GFR (CKD) >90 (>60 ml/min/1.73 sqM); Blood Urea Nitrogen 6 mg/dL (7-17); Non-African American GFR(CKD) >90 (>60 ml/min/1.73 sqM)
--- NOTE | 2022-10-04 17:51 | CT ---
CT CHEST FOR PULMONARY EMBOLISM. EXAMINATION TYPE: CT angio chest DATE OF EXAM: 10/04/2022 INDICATION: hx thoracic aneurysm CT DLP: 1019.2 mGycm, Automated exposure control for dose reduction was used. CONTRAST: Patient injected with 100ml mL of Isovue 370. COMPARISON: None TECHNIQUE: CT of the chest is performed on a spiral scan at 2 mm thick sections. Study is performed with intravenous contrast timed for evaluation for evaluation of the aorta This will limit additional portions of the evaluation. 3-D MIP images reconstructed by the technologist are reviewed on the [employer] mputer in the coronal and sagittal planes. FINDINGS: No mediastinal or hilar adenopathy enlarged by CT criteria is evident. Apparently scattered small ret rocrural lymph nodes. The ascending aorta diameter at the level of the main pulmonary artery is 4.3 cm. The main pulmonar y artery diameter at the bifurcation is 3.0 cm. The aorta the aortic root measures 3.2 cm. Aorta at the main pulmonary artery is 4.3 cm. Transverse d imension of the aorta at the posterior aortic arch is 3.0 cm. Aorta at the diaphragm is 0.2 cm. Lung windows are clear. Limited CT section through the upper abdomen are unremarkable. IMPRESSIONS: 1. Ascending thoracic aortic aneurysm of 4.3 cm.
--- NOTE | 2022-10-05 17:28 | MM ---
Reason for Exam: Screening (asymptomatic). Baseline mammogram. Patient History: Menarche at age 13. First Full-Term at age 19. Premenopausal. Risk Values: Vee 5 year model risk: 0.5%. NCI Lifetime model risk: 7.2%. Prior Study Comparison: Patient's first Mammogram. Tissue Density: There are scattered fibroglandular densities. Findings: Analyzed By CAD. There is no suspicious group of microcalcifications or new suspicious mass in either breast. Overall Assessment: Negative, BI-RAD 1 Management: Screening Mammogram of both breasts in 1 year. . Patient should continue monthly self-breast exams. A clinical breast exam by your physician is recommended on an annual basis. This exam should not preclude additional follow-up of suspicious palpable abnormalities. Note on Vee scores and lifetime risk: 1. A Vee score greater than 3% is considered moderate risk. If this is the case, consider specialist referral to assess eligibility for a risk reducing agent. 2. If overall lifetime risk for the development of breast cancer is 20% or higher, the patient may qualify for future screening with alternating mammogram and breast MRI. Electronically signed and approved by: Araceli Farnsworth M.D. Radiologist
== END | disposition home or self-care (01) ==
LOC: RADCTMAIN 14:17
PROVIDERS: ATTEND Family Medicine
DX: Z12.31 Encounter for screening mammogram for malignant neoplasm of breast (principal)
CPT/HCPCS: 82565; 84520; 77067; 77063; 71275; 36415; Q9967

== ENCOUNTER 2022-11-24 15:08 | Emergency (ER) | payer OTHER ==
[2022-11-24 16:06] VITALS: TEMP 99.1
[2022-11-24 16:10] LABS: Glucose,Whole Blood 134 mg/dL (70-110)
[2022-11-24 17:00] LABS: Amphetamine Screen,Urine Not Detected (NotDetected); Appearance,Urine Turbid (Clear); Barbiturate Screen,Urine Not Detected (NotDetected); Benzodiazepines Screen,Urine Detected (NotDetected); Bilirubin,Urine Negative (Negative); Blood,Urine Negative (Negative); Cocaine Screen,Urine Not Detected (NotDetected); Color,Urine Light Red; Glucose,Urine (UA) 4+ (Negative); Ketones,Urine Negative (Negative); Leukocyte Esterase,Urine Moderate (Negative); Methadone Screen, Urine Not Detected (NotDetected); Mucus,Urine Rare /hpf; Nitrite,Urine Negative (Negative); Opiate Screen,Urine Not Detected (NotDetected); Oxycodone Screen, Urine Not Detected (NotDetected); PH, Urine 7.5 (5.0-8.0); Phencyclidine Screen,Urine Not Detected (NotDetected); Protein,Urine 1+ (Negative); RBC,Urine 4 /hpf (0-5); Squamous Epithelial Cell,Urine 87 /hpf (0-4); Transitional Epi Cells,Urine <1 /hpf (0-1); Tricyclic Antidepressant,Urine Not Detected (NotDetected); Urn Cannabinoid Scrn Not Detected (NotDetected)
[2022-11-24 17:01] LABS: Anisocytosis Slight; Basophils % (A) 0 %; Eosinophils % (A) 1 %; HCT 33.6 % (34.0-46.0); HGB 10.3 gm/dL (11.4-16.0); Hypochromasia Marked; Lymphocytes # (A) 1.3 k/uL (1.0-4.8); Lymphocytes % (A) 24 %; MCH 25.9 pg (25.0-35.0); MCHC 30.7 g/dL (31.0-37.0); MCV 84.3 fL (80.0-100.0); Mean Platelet Volume 8.3; Microcytosis Slight; Monocytes # (A) 0.4 k/uL (0-1.0); Monocytes % (A) 7 %; Neutrophils # (A) 3.4 k/uL (1.3-7.7); Neutrophils % (A) 66 %; Platelet Count 115 k/uL (150-450); RBC 3.99 m/uL (3.80-5.40); RDW 18.9 % (11.5-15.5); WBC 5.1 k/uL (3.8-10.6)
[2022-11-24 17:11] LABS: ALT 17 U/L (4-34); AST 90 U/L (14-36); African American GFR (CKD) >90 (>60 ml/min/1.73 sqM); Albumin 4.1 g/dL (3.5-5.0); Alkaline Phosphatase 125 U/L (38-126); Anion Gap 9 mmol/L; Blood Urea Nitrogen 6 mg/dL (7-17); Calcium 8.7 mg/dL (8.4-10.2); Carbon Dioxide 28 mmol/L (22-30); Chloride 101 mmol/L (98-107); Glucose 121 mg/dL (74-99); INR 1.4 (<1.2); Non-African American GFR(CKD) >90 (>60 ml/min/1.73 sqM); Potassium 4.1 mmol/L (3.5-5.1); Prothrombin Time 14.1 sec (9.0-12.0); Sodium 138 mmol/L (137-145); Total Bilirubin 1.8 mg/dL (0.2-1.3); Total Protein 9.1 g/dL (6.3-8.2)
[2022-11-24] MEDS ORDERED: MECLIZINE 12.5 MG TAB PO STA (19:47)
--- NOTE | 2022-11-24 20:51 | ED ---
Dizziness HPI - General Chief Complaint: Dizziness Stated Complaint: Dizziness Time Seen by Provider: 11/24/22 19:36 Source: patient Mode of arrival: ambulatory Limitations: no limitations - History of Present Illness Initial Comments: 42-year-old female presenting with chief complaint of dizziness. She states that she has had on and off dizziness throughout the day since waking up today. Worse with moving her head. States that it feels like the room is spinning. No headache, vision or hearing changes, numbness, tingling, weakness. She does admit to ongoing URI. She states that she did have an episode of shortness of breath, however she believes this was related to anxiety. No abdominal pain, nausea, vomiting, fever, chills. She was recently started on lisinopril. - Related Data Home Medications Medication Instructions Recorded Confirmed Omeprazole 40 mg PO DAILY 03/07/18 11/24/22 FLUoxetine HCL [PROzac] 40 mg PO DAILY 03/10/20 11/24/22 Clobetasol Propionate [Temovate 1 applic TOPICAL BID PRN 11/24/22 11/24/22 0.05% Cream] Clobetasol Propionate [Temovate 1 applic TOPICAL BID PRN 11/24/22 11/24/22 0.05% Oint] Dapagliflozin Propanediol [Farxiga] 10 mg PO DAILY 11/24/22 11/24/22 Dulaglutide [Trulicity] 3 mg SQ FR 11/24/22 11/24/22 Rosuvastatin Calcium 5 mg PO DAILY 11/24/22 11/24/22 glipiZIDE XL [Glucotrol Xl] 10 mg PO DAILY 11/24/22 11/24/22 lisinopriL [Zestril] 5 mg PO DAILY 11/24/22 11/24/22 traZODone HCL [Desyrel] 50 mg PO HS PRN 11/24/22 11/24/22 Previous Rx's Medication Instructions Recorded Meclizine [Antivert] 25 mg PO BID PRN #20 tab 11/24/22 Allergies Allergy/AdvReac Type Severity Reaction Status Date / Time No Known Allergies Allergy Verified 11/24/22 20:17 Review of Systems ROS Statement: Those systems with pertinent positive or pertinent negative responses have been documented in the HPI. ROS Other: All systems not noted in ROS Statement are negative. Past Medical History Past Medical History: Diabetes Mellitus, Hypertension, Skin Disorder Additional Past Medical History / Comment(s): fatty liver History of Any Multi-Drug Resistant Organisms: None Reported Past Surgical History: No Surgical Hx Reported Past Anesthesia/Blood Transfusion Reactions: No Reported Reaction Past Psychological History: Anxiety, Depression Smoking Status: Former smoker Past Alcohol Use History: Abuse, Daily Past Drug Use History: None Reported - Past Family History Father History Unknown: Yes Family Medical History: No Reported History General Exam Limitations: no limitations General appearance: alert, in no apparent distress Head exam: Present: atraumatic, normocephalic, normal inspection Eye exam: Present: normal appearance, PERRL, EOMI. Absent: scleral icterus, conjunctival injection, periorbital swelling Pupils: Present: normal accommodation Neck exam: Present: normal inspection, full ROM Respiratory exam: Present: normal lung sounds bilaterally. Absent: respiratory distress, wheezes, rales, rhonchi, stridor Cardiovascular Exam: Present: regular rate, normal rhythm, normal heart sounds. Absent: systolic murmur, diastolic murmur, rubs, gallop, clicks Neurological exam: Present: alert, oriented X3, CN II-XII intact Expanded Patient oriented to: Present: person, place, time Speech: Present: fluid speech Cranial nerves: EOM's Intact: Normal Cerebellar function: Finger to Nose: Normal, Heel to Hernandez: Normal Sensory exam: Upper Extremity Light Touch: Normal, Lower Extremity Light Touch: Normal Motor strength exam: RUE: 5, LUE: 5, RLE: 5, LLE: 5 Eye Response: (4) open spontaneously Motor Response: (6) obeys commands Verbal Response: (5) oriented [place] Total: 15 Psychiatric exam: Present: normal affect, normal mood Skin exam: Present: warm, dry, intact, normal color. Absent: rash Course Vital Signs 11/24/22 11/24/22 11/24/22 16:03 20:34 21:20 Temperature 99.1 F Pulse Rate 84 87 Respiratory 16 18 Rate Blood Pressure 163/93 143/74 Blood Pressure 162/96 [Right Arm Sitting] Blood Pressure 157/95 [Right Arm Standing] Blood Pressure 150/94 [Right Arm Supine] O2 Sat by Pulse 98 96 Oximetry EKG Findings - EKG Comments: EKG Findings:: Sinus rhythm ventricular rate 83. SD interval 134. QRS 94. QTC 400. QTC 439. No ischemic changes. Left axis deviation Medical Decision Making - Medical Decision Making Was pt. sent in by a medical professional or institution (, PA, [employer], urgent care, hospital, or custodial...) When possible be specific @ -No Did you speak to anyone other than the patient for history (EMS, parent, family, police, friend...)? What history was obtained from this source @ -No Did you review nursing and triage notes (agree or disagree)? Why? @ -I reviewed and agree with nursing and triage notes Were old charts reviewed (outside hosp., previous admission, EMS record, old EKG, old radiological studies, urgent care reports/EKG's, custodial records)? Report findings @ -No old charts were reviewed Differential Diagnosis (chest pain, altered mental status, abdominal pain women, abdominal pain men, vaginal bleeding, weakness, fever, dyspnea, syncope, headache, dizziness, GI bleed, back pain, seizure, CVA, palpatations, mental health, musculoskeletal)? @ -MDM Differential Dizziness: Benign paroxysmal positional Vertigo, Menieres disease, otitis media, ac oustic neuroma, vertebrobasilar insufficiency, cerebellar stroke, encephalitis, hypovolemic, arrhythmia, coronary artery syndrome, anemia this is not meant to be an all-inclusive list EKG interpreted by me (3pts min.). @ -As above X-rays interpreted by me (1pt min.). @ -None done CT interpreted by me (1pt min.). @ -None done U/S interpreted by me (1pt. min.). @ -None done What testing was considered but not performed or refused? (CT, X-rays, U/S, labs)? Why? @ -None What meds were considered but not given or refused? Why? @ -None Did you discuss the management of the patient with other professionals (professionals i.e. , JAZ, [employer], lab, RT, psych nurse, long term care social worker, bark grinder, teacher, multisensor intelligence officer, counseling case manager)? Give summary @ -No Was smoking cessation discussed for >3mins.? @ -No Was critical care preformed (if so, how long)? @ -No Were there social determinants of health that impacted care today? How? (Homelessness, low income, unemployed, alcoholism, drug addiction, transportation, low edu. Level, literacy, decrease access to med. care, intermediate, rehab)? @ -No Was there de-escalation of care discussed even if they declined (Discuss DNR or withdrawal of care, Hospice)? DNR status @ -No What co-morbidities impacted this encounter? (DM, HTN, Smoking, COPD, CAD, Cancer, CVA, ARF, Chemo, Hep., AIDS, mental health diagnosis, sleep apnea, morbi d obesity)? @ -None Was patient admitted / discharged? Hospital course, mention meds given and route, prescriptions, significant lab abnormalities, going to OR and other pertinent info. @ -42-year-old female presenting with chief complaint of intermittent dizziness throughout the day. Worse with moving her head. She currently has a URI. No chest pain or palpitations. Physical examination is unremarkable, no focal neurological deficits and GCS is 15. Lab work requires no action. Negative orthostatic vitals. EKG shows no acute findings. On reassessment the patient is resting comfortably, she was given meclizine and she is not experiencing any dizziness. She is educated about possible BPPV. Also believe there is some anxiety component. She is provided with meclizine prescription and instructed to follow-up with her PCP. Follow-up with PCP. Report back to ER with any new or worsening symptoms. Discussed return parameters and answered all questions. Patient conveyed verbal understanding and agreed to the plan. I discussed this case in detail with my attending Dr. Jauregui Undiagnosed new problem with uncertain prognosis? @ -No Drug Therapy requiring intensive monitoring for toxicity (Heparin, Nitro, Insulin, Cardizem)? @ -No Were any procedures done? @ -No Diagnosis/symptom? @ -BPPV, anxiety Acute, or Chronic, or Acute on Chronic? @ -Acute Uncomplicated (without systemic symptoms) or Complicated (systemic symptoms)? @ -Uncomplicated Side effects of treatment? @ -No Exacerbation, Progression, or Severe Exacerbation? @ -No Poses a threat to life or bodily function? How? (Chest pain, [place], [place], pneumonia, PE, COPD, DKA, ARF, appy, cholecystitis, CVA, Diverticulitis, Homicidal, Suicidal, threat to staff... and all critical care pts) @ -No - Lab Data Result diagrams: 11/24/22 16:40 11/24/22 16:40 Lab Results 11/24/22 11/24/22 11/24/22 Range/Units 16:05 16:29 16:40 WBC 5.1 (3.8-10.6) k/uL RBC 3.99 (3.80-5.40) m/uL Hgb 10.3 L (11.4-16.0) gm/dL Hct 33.6 L (34.0-46.0) % MCV 84.3 (80.0-100.0) fL MCH 25.9 (25.0-35.0) pg MCHC 30.7 L (31.0-37.0) g/dL RDW 18.9 H (11.5-15.5) % Plt Count 115 L (150-450) k/uL MPV 8.3 Neutrophils % 66 % Lymphocytes % 24 % Monocytes % 7 % Eosinophils % 1 % Basophils % 0 % Neutrophils # 3.4 (1.3-7.7) k/uL Lymphocytes # 1.3 (1.0-4.8) k/uL Monocytes # 0.4 (0-1.0) k/uL Eosinophils # 0.0 (0-0.7) k/uL Basophils # 0.0 (0-0.2) k/uL Hypochromasia Marked Anisocytosis Slight Microcytosis Slight PT (9.0-12.0) sec INR (<1.2) Sodium (137-145) mmol/L Potassium (3.5-5.1) mmol/L Chloride (98-107) mmol/L Carbon Dioxide (22-30) mmol/L Anion Gap mmol/L BUN (7-17) mg/dL Creatinine (0.52-1.04) mg/dL Est GFR (CKD-EPI)AfAm (>60 ml/min/1.73 sqM) Est GFR (CKD-EPI)NonAf (>60 ml/min/1.73 sqM) Glucose (74-99) mg/dL POC Glucose (mg/dL) 134 H (70-110) mg/dL POC Glu Account Manager Education ID Michelle, Duong Calcium (8.4-10.2) mg/dL Total Bilirubin (0.2-1.3) mg/dL AST (14-36) U/L ALT (4-34) U/L Alkaline Phosphatase (38-126) U/L Troponin I (0.000-0.034) ng/mL Total Protein (6.3-8.2) g/dL Albumin (3.5-5.0) g/dL Urine Color Light Red Urine Appearance Turbid H (Clear) Urine pH 7.5 (5.0-8.0) Ur Specific [place] 1.020 (1.001-1.035) Urine Protein 1+ H (Negative) Urine Glucose (UA) 4+ H (Negative) Urine Ketones Negative (Negative) Urine Blood Negative (Negative) Urine Nitrite Negative (Negative) Urine Bilirubin Negative (Negative) Urine Urobilinogen 6.0 (<2.0) mg/dL Ur Leukocyte Esterase Moderate H (Negative) Urine RBC 4 (0-5) /hpf Ur Squamous Epith Cells 87 H (0-4) /hpf Ur Transition Epith Cell <1 (0-1) /hpf Urine Mucus Rare H (None) /hpf Urine Opiates Screen Not Detected (NotDetected) Ur Oxycodone Screen Not Detected (NotDetected) Urine Methadone Screen Not Detected (NotDetected) Ur Propoxyphene Screen Not Detected (NotDetected) Ur Barbiturates Screen Not Detected (NotDetected) U Tricyclic Antidepress Not Detected (NotDetected) Ur Phencyclidine Scrn Not Detected (NotDetected) Ur Amphetamines Screen Not Detected (NotDetected) U Methamphetamines Scrn Not Detected (NotDetected) U Benzodiazepines Scrn Detected H (NotDetected) Urine Cocaine Screen Not Detected (NotDetected) U Marijuana (THC) Screen Not Detected (NotDetected) 11/24/22 11/24/22 11/24/22 Range/Units 16:40 16:40 16:40 WBC (3.8-10.6) k/uL RBC (3.80-5.40) m/uL Hgb (11.4-16.0) gm/dL Hct (34.0-46.0) % MCV (80.0-100.0) fL MCH (25.0-35.0) pg MCHC (31.0-37.0) g/dL RDW (11.5-15.5) % Plt Count (150-450) k/uL MPV Neutrophils % % Lymphocytes % % Monocytes % % Eosinophils % % Basophils % % Neutrophils # (1.3-7.7) k/uL Lymphocytes # (1.0-4.8) k/uL Monocytes # (0-1.0) k/uL Eosinophils # (0-0.7) k/uL Basophils # (0-0.2) k/uL Hypochromasia Anisocytosis Microcytosis PT 14.1 H (9.0-12.0) sec INR 1.4 H (<1.2) Sodium 138 (137-145) mmol/L Potassium 4.1 (3.5-5.1) mmol/L Chloride 101 (98-107) mmol/L Carbon Dioxide 28 (22-30) mmol/L Anion Gap 9 mmol/L BUN 6 L (7-17) mg/dL Creatinine 0.54 (0.52-1.04) mg/dL Est GFR (CKD-EPI)AfAm >90 (>60 ml/min/1.73 sqM) Est GFR (CKD-EPI)NonAf >90 (>60 ml/min/1.73 sqM) Glucose 121 H (74-99) mg/dL POC Glucose (mg/dL) (70-110) mg/dL POC Glu Account Manager Education ID Calcium 8.7 (8.4-10.2) mg/dL Total Bilirubin 1.8 H (0.2-1.3) mg/dL AST 90 H (14-36) U/L ALT 17 (4-34) U/L Alkaline Phosphatase 125 (38-126) U/L Troponin I <0.012 (0.000-0.034) ng/mL Total Protein 9.1 H (6.3-8.2) g/dL Albumin 4.1 (3.5-5.0) g/dL Urine Color Urine Appearance (Clear) Urine pH (5.0-8.0) Ur Specific [place] (1.001-1.035) Urine Protein (Negative) Urine Glucose (UA) (Negative) Urine Ketones (Negative) Urine Blood (Negative) Urine Nitrite (Negative) Urine Bilirubin (Negative) Urine Urobilinogen (<2.0) mg/dL Ur Leukocyte Esterase (Negative) Urine RBC (0-5) /hpf Ur Squamous Epith Cells (0-4) /hpf Ur Transition Epith Cell (0-1) /hpf Urine Mucus (None) /hpf Urine Opiates Screen (NotDetected) Ur Oxycodone Screen (NotDetected) Urine Methadone Screen (NotDetected) Ur Propoxyphene Screen (NotDetected) Ur Barbiturates Screen (NotDetected) U Tricyclic Antidepress (NotDetected) Ur Phencyclidine Scrn (NotDetected) Ur Amphetamines Screen (NotDetected) U Methamphetamines Scrn (NotDetected) U Benzodiazepines Scrn (NotDetected) Urine Cocaine Screen (NotDetected) U Marijuana (THC) Screen (NotDetected) Disposition Clinical Impression: BPPV (benign paroxysmal positional vertigo), Anxiety Disposition: HOME SELF-CARE Condition: Good Instructions (If sedation given, give patient instructions): Benign Paroxysmal Positional Vertigo (ED), Dizziness (ED), Anxiety (ED) Additional Instructions: Follow-up with PCP. Report back to ER with any new or worsening symptoms. Take medication as prescribed. Prescriptions: Meclizine [Antivert] 25 mg PO BID PRN #20 tab PRN Reason: Vertigo Is patient prescribed a controlled substance at d/c from ED?: No Referrals: Robert Mahan MD [Primary Care Provider] - 1-2 days Time of Disposition: 20:51
[2022-11-24 21:24] VITALS: BP 143/74; PULSE 87; RESP 18
== END 2022-11-24 21:31 | disposition home or self-care (01) ==
LOC: EC 15:08
DX: F41.9 Anxiety disorder, unspecified (principal); H81.10 Benign paroxysmal vertigo, unspecified ear; E11.9 Type 2 diabetes mellitus without complications; I10 Essential (primary) hypertension; F32.A Depression, unspecified; Z87.891 Personal history of nicotine dependence; Z79.899 Other long term (current) drug therapy; Z79.84 Long term (current) use of oral hypoglycemic drugs
CPT/HCPCS: 36415; 80053; 80306; 81001; 84484; 85025; 85610; 93005; 99284

== ENCOUNTER → 2023-07-21 | Outpatient (CLI) | payer OTHER ==
--- NOTE | 2023-07-21 13:17 | XR ---
EXAMINATION TYPE: XR femur RT, XR Hip RT and AP Pelvis DATE OF EXAM: 07/21/2023 1:03 PM CLINICAL INDICATION:Female, 43 years old with history of [id number], [id number]; [facility] COMPARISON: TECHNIQUE: XR femur RT, XR Hip RT and AP Pelvis examined in Frontal and lateral projections. FINDINGS: No evidence of acute osseous pathology, joint dislocation, or soft tissue swelling IMPRESSION: No acute osseous pathology.
== END | disposition home or self-care (01) ==
LOC: RADXRMAIN 12:15
PROVIDERS: ATTEND Emergency Medicine
DX: S70.10XA Contusion of unspecified thigh, initial encounter (principal); S70.11XA Contusion of right thigh, initial encounter
CPT/HCPCS: 73502

== ENCOUNTER 2023-10-19 21:37 | Observation (INO) | payer OTHER ==
[2023-10-19] MEDS ORDERED: LORazepam 2 MG/ML INJ IV PRN ×2 (22:02)
--- NOTE | 2023-10-19 22:16 | ED ---
Alcohol HPI - General Chief Complaint: Alcohol Stated Complaint: Detox Time Seen by Provider: 10/19/23 21:51 Source: patient Mode of arrival: ambulatory Limitations: no limitations - History of Present Illness Initial Comments: 43-year-old female presenting for alcohol intoxication, requesting medical detox . Patient is a current daily drinker, she drinks about 1 case of beer per day. Her last drink was just prior to arrival. She states that she has undergone withdrawal before and has been on Ativan in the past. No history of delirium tremens. No thoughts of harming others. Currently denies any nausea, vomiting, chest pain, difficulty breathing, abdominal pain, headache, diaphoresis - Related Data Home Medications Medication Instructions Recorded Confirmed Omeprazole 40 mg PO DAILY 03/07/18 11/24/22 FLUoxetine HCL [PROzac] 40 mg PO DAILY 03/10/20 11/24/22 Clobetasol Propionate [Temovate 1 applic TOPICAL BID PRN 11/24/22 11/24/22 0.05% Cream] Clobetasol Propionate [Temovate 1 applic TOPICAL BID PRN 11/24/22 11/24/22 0.05% Oint] Dapagliflozin Propanediol [Farxiga] 10 mg PO DAILY 11/24/22 11/24/22 Dulaglutide [Trulicity] 3 mg SQ FR 11/24/22 11/24/22 Rosuvastatin Calcium 5 mg PO DAILY 11/24/22 11/24/22 glipiZIDE XL [Glucotrol Xl] 10 mg PO DAILY 11/24/22 11/24/22 lisinopriL [Zestril] 5 mg PO DAILY 11/24/22 11/24/22 traZODone HCL [Desyrel] 50 mg PO HS PRN 11/24/22 11/24/22 Previous Rx's Medication Instructions Recorded Meclizine [Antivert] 25 mg PO BID PRN #20 tab 11/24/22 Allergies Allergy/AdvReac Type Severity Reaction Status Date / Time No Known Allergies Allergy Verified 11/24/22 20:17 Review of Systems ROS Statement: Those systems with pertinent positive or pertinent negative responses have been documented in the HPI. ROS Other: All systems not noted in ROS Statement are negative. Past Medical History Past Medical History: Diabetes Mellitus, Hypertension, Skin Disorder Additional Past Medical History / Comment(s): fatty liver History of Any Multi-Drug Resistant Organisms: None Reported Past Surgical History: No Surgical Hx Reported Past Anesthesia/Blood Transfusion Reactions: No Reported Reaction Past Psychological History: Anxiety, Depression Smoking Status: Former smoker Past Alcohol Use History: Abuse, Daily Past Drug Use History: None Reported - Past Family History Father History Unknown: Yes Family Medical History: No Reported History General Exam Limitations: no limitations General appearance: alert, in no apparent distress Head exam: Present: atraumatic, normocephalic Eye exam: Present: normal appearance, EOMI Neck exam: Present: normal inspection. Absent: meningismus Respiratory exam: Present: normal lung sounds bilaterally. Absent: respiratory distress, wheezes, rales, rhonchi, stridor Cardiovascular Exam: Present: regular rate, normal rhythm, normal heart sounds. Absent: systolic murmur, diastolic murmur, rubs, gallop, clicks Neurological exam: Present: alert, oriented X3 Psychiatric exam: Present: normal affect, normal mood Skin exam: Present: normal color Course Vital Signs 10/19/23 21:44 Temperature 98.6 F Pulse Rate 77 Respiratory 16 Rate Blood Pressure 142/80 O2 Sat by Pulse 95 Oximetry Medical Decision Making - Medical Decision Making Was pt. sent in by a medical professional or institution (, PA, SENIOR MAINTENANCE MACHINIST, urgent care, hospital, or longterm...) When possible be specific @ -No Did you speak to anyone other than the patient for history (EMS, parent, family, police, friend...)? What history was obtained from this source @ -No Did you review nursing and triage notes (agree or disagree)? Why? @ -I reviewed and agree with nursing and triage notes Were old charts reviewed (outside hosp., previous admission, EMS record, old EKG, old radiological studies, urgent care reports/EKG's, longterm records)? Report findings @ -No old charts were reviewed Differential Diagnosis (chest pain, altered mental status, abdominal pain women, abdominal pain men, vaginal bleeding, weakness, fever, dyspnea, syncope, headache, dizziness, GI bleed, back pain, seizure, CVA, palpatations, mental health, musculoskeletal)? @ -Differential includes alcohol intoxication, alcohol withdrawal, electrolyte abnormality, infectious process, this is not an all-inclusive list EKG interpreted by me (3pts min.). @ -As above X-rays interpreted by me (1pt min.). @ -None done CT interpreted by me (1pt min.). @ -None done U/S interpreted by me (1pt. min.). @ -None done What testing was considered but not performed or refused? (CT, X-rays, U/S, labs)? Why? @ -None What meds were considered but not given or refused? Why? @ -None Did you discuss the management of the patient with other professionals (professionals i.e. , PA, SENIOR MAINTENANCE MACHINIST, lab, RT, psych nurse, addiction social worker, creative lead, teacher, student officer, onsite case manager)? Give summary @ -Spoke with Dr. Barton who accepted admission Was smoking cessation discussed for >3mins.? @ -No Was critical care preformed (if so, how long)? @ -No Were there social determinants of health that impacted care today? How? (Homelessness, low income, unemployed, alcoholism, drug addiction, transportation, low edu. Level, literacy, decrease access to med. care, fci, rehab)? @ -Alcoholism Was there de-escalation of care discussed even if they declined (Discuss DNR or withdrawal of care, Hospice)? DNR status @ -No What co-morbidities impacted this encounter? (DM, HTN, Smoking, COPD, CAD, Cancer, CVA, ARF, Chemo, Hep., AIDS, mental health diagnosis, sleep apnea, morbid obesity)? @ -None Was patient admitted / discharged? Hospital course, mention meds given and route, prescriptions, significant lab abnormalities, going to OR and other pertinent info. @ -43-year-old female presenting with alcohol intoxication, requesting medical detox. She is a daily drinker and normally drinks a case of beer per day and h er last drink was just prior to arrival. She has no other complaints at this time. History and physical exam are conducted. Serum alcohol is 377. Patient is placed on [facility] protocol for impending alcohol withdrawal. She will be admitted. She is agreeable with this plan. I discussed this case with my attending Dr. Neal. Undiagnosed new problem with uncertain prognosis? @ -No Drug Therapy requiring intensive monitoring for toxicity (Heparin, Nitro, Insulin, Cardizem)? @ -No Were any procedures done? @ -No Diagnosis/symptom? @ -Alcohol intoxication Acute, or Chronic, or Acute on Chronic? @ -Acute Uncomplicated (without systemic symptoms) or Complicated (systemic symptoms)? @ -Complicated Side effects of treatment? @ -No Exacerbation, Progression, or Severe Exacerbation? @ -No Poses a threat to life or bodily function? How? (Chest pain, [place], [place], pneumonia, PE, COPD, DKA, ARF, appy, cholecystitis, CVA, Diverticulitis, Homicidal, Suicidal, threat to staff... and all critical care pts) @ -Yes - Lab Data Result diagrams: 10/19/23 22:36 10/19/23 22:36 Lab Results 10/19/23 10/19/23 Range/Units 22:36 22:36 WBC 5.5 (3.8-10.6) k/uL RBC 4.02 (3.80-5.40) m/uL Hgb 10.6 L (11.4-16.0) gm/dL Hct 34.2 (34.0-46.0) % MCV 85.0 (80.0-100.0) fL MCH 26.3 (25.0-35.0) pg MCHC 31.0 (31.0-37.0) g/dL RDW 21.2 H (11.5-15.5) % Plt Count 99 L (150-450) k/uL MPV 8.5 Neutrophils % 51 % Lymphocytes % 42 % Monocytes % 4 % Eosinophils % 2 % Basophils % 0 % Neutrophils # 2.8 (1.3-7.7) k/uL Lymphocytes # 2.3 (1.0-4.8) k/uL Monocytes # 0.2 (0-1.0) k/uL Eosinophils # 0.1 (0-0.7) k/uL Basophils # 0.0 (0-0.2) k/uL Manual Slide Review Performed Hypochromasia Slight Anisocytosis Moderate Microcytosis Slight Tear Drop Cells Present Sodium 141 (137-145) mmol/L Potassium 3.4 L (3.5-5.1) mmol/L Chloride 109 H (98-107) mmol/L Carbon Dioxide 23 (22-30) mmol/L Anion Gap 9 mmol/L BUN 2 L (7-17) mg/dL Creatinine 0.51 L (0.52-1.04) mg/dL Est GFR (CKD-EPI)AfAm >90 (>60 ml/min/1.73 sqM) Est GFR (CKD-EPI)NonAf >90 (>60 ml/min/1.73 sqM) Glucose 137 H (74-99) mg/dL Calcium 8.2 L (8.4-10.2) mg/dL Magnesium 1.6 (1.6-2.3) mg/dL Total Bilirubin 2.0 H (0.2-1.3) mg/dL AST 175 H (14-36) U/L ALT 27 (4-34) U/L Alkaline Phosphatase 136 H (38-126) U/L Total Protein 8.4 H (6.3-8.2) g/dL Albumin 3.3 L (3.5-5.0) g/dL Amylase 53 (30-110) U/L Lipase 283 (23-300) U/L Serum Alcohol 377 H* mg/dL Disposition Clinical Impression: Alcoholic intoxication Disposition: ADMITTED IP TO THIS HOSP Condition: Fair Time of Disposition: 01:16
[2023-10-19 23:01] LABS: ALT 27 U/L (4-34); AST 175 U/L (14-36); African American GFR (CKD) >90 (>60 ml/min/1.73 sqM); Albumin 3.3 g/dL (3.5-5.0); Alkaline Phosphatase 136 U/L (38-126); Amylase 53 U/L (30-110); Anion Gap 9 mmol/L; Blood Urea Nitrogen 2 mg/dL (7-17); Calcium 8.2 mg/dL (8.4-10.2); Carbon Dioxide 23 mmol/L (22-30); Chloride 109 mmol/L (98-107); Glucose 137 mg/dL (74-99); Lipase 283 U/L (23-300); Magnesium 1.6 mg/dL (1.6-2.3); Non-African American GFR(CKD) >90 (>60 ml/min/1.73 sqM); Potassium 3.4 mmol/L (3.5-5.1); Sodium 141 mmol/L (137-145); Total Protein 8.4 g/dL (6.3-8.2)
[2023-10-19 23:13] LABS: Anisocytosis Moderate; Basophils % (A) 0 %; Eosinophils # (A) 0.1 k/uL (0-0.7); Eosinophils % (A) 2 %; HCT 34.2 % (34.0-46.0); HGB 10.6 gm/dL (11.4-16.0); Hypochromasia Slight; Lymphocytes # (A) 2.3 k/uL (1.0-4.8); Lymphocytes % (A) 42 %; MCH 26.3 pg (25.0-35.0); Mean Platelet Volume 8.5; Microcytosis Slight; Monocytes # (A) 0.2 k/uL (0-1.0); Monocytes % (A) 4 %; Neutrophils # (A) 2.8 k/uL (1.3-7.7); Neutrophils % (A) 51 %; RBC 4.02 m/uL (3.80-5.40); RDW 21.2 % (11.5-15.5); WBC 5.5 k/uL (3.8-10.6)
[2023-10-20 00:11] LABS: Alcohol 377 mg/dL
[2023-10-20] MEDS: traZODone HCL 50 MG TAB PO ONE (00:16)
[2023-10-20] MEDS ORDERED: NALOXONE 0.4 MG/ML 1 ML VIAL IV PRN (01:14)
[2023-10-20] MEDS: SODIUM CHLORIDE 0.9% 1,000 ML IV SCH (01:24)
[2023-10-20] MEDS: POTASSIUM CHLORIDE ER 20 MEQ TAB.ER PO STA (01:24)
[2023-10-20] MEDS: SODIUM CHLORIDE 0.9% 500 ML 500 ML IV ONE (01:25)
[2023-10-20 01:35] LABS: Platelet Count 99 k/uL (150-450); Tear Drop Cells Present
[2023-10-20] MEDS ORDERED: DEXTROSE 50% SYRINGE 50 ML IVP PRN ×2 (08:02)
--- NOTE | 2023-10-20 08:08 | P.HPIM ---
History of Present Illness H&P Date: 10/20/23 Chief Complaint: alcohol intoxication 43 year old female with psoriasis , DM , hypertension patient coming in seeking help with alcohol intoxication . she is trying to quit and afraid to go into withdrawals. denies any history of seizures, denies headache , changes in vision , nausea or vomiting. she is currently laying comfortable in bed , no shaking , no hallucinations . she arrived with blood alcohol level of 377, he last drink was just prior to coming in review of systems Pertinent positives as noted in HPI. All other systems were reviewed and are negative on exam Constitutional: No acute distress, conversant, pleasant Eyes: Anicteric sclerae, moist conjunctiva, Pupils equal round reactive to light ENMT: NC/AT Oropharynx clear, no erythema, or exudates Neck: Supple, no masses, or JVD No carotid bruits No thyromegaly Lungs: Clear to auscultation Clear to percussion Normal respiratory effort, no accessory muscle use Cardiovascular: Heart regular in rate and rhythm, No murmurs, gallops, or rubs No peripheral edema Abdominal: Soft Nontender, no guarding, rebound or rigidity Abdomen moving with respiration Normoactive bowel sounds Skin: severe diffuse psoriasis Extremities: No digital cyanosis No clubbing Pedal pulses intact and symmetrical Radial pulses intact and symmetrical No calf tenderness Psychiatric: Alert and oriented to person, place and time Appropriate affect fair judgement Neuro Muscles Strength 5/5 in all 4 extremities Sensation to light touch grossly present throughout Cranial nerves II-XII grossly intact Past Medical History Past Medical History: Diabetes Mellitus, Hypertension, Skin Disorder Additional Past Medical History / Comment(s): fatty liver History of Any Multi-Drug Resistant Organisms: None Reported Past Surgical History: No Surgical Hx Reported Past Anesthesia/Blood Transfusion Reactions: No Reported Reaction Past Psychological History: Anxiety, Depression Smoking Status: Former smoker Past Alcohol Use History: Abuse, Daily Past Drug Use History: None Reported - Past Family History Father History Unknown: Yes Family Medical History: No Reported History Medications and Allergies Home Medications Medication Instructions Recorded Confirmed Type Omeprazole 40 mg PO DAILY 03/07/18 11/24/22 History FLUoxetine HCL [PROzac] 40 mg PO DAILY 03/10/20 11/24/22 History Clobetasol Propionate [Temovate 1 applic TOPICAL BID PRN 11/24/22 11/24/22 History 0.05% Cream] Clobetasol Propionate [Temovate 1 applic TOPICAL BID PRN 11/24/22 11/24/22 History 0.05% Oint] Dapagliflozin Propanediol [Farxiga] 10 mg PO DAILY 11/24/22 11/24/22 History Dulaglutide [Trulicity] 3 mg SQ FR 11/24/22 11/24/22 History Meclizine [Antivert] 25 mg PO BID PRN #20 tab 11/24/22 Rx Rosuvastatin Calcium 5 mg PO DAILY 11/24/22 11/24/22 History glipiZIDE XL [Glucotrol Xl] 10 mg PO DAILY 11/24/22 11/24/22 History lisinopriL [Zestril] 5 mg PO DAILY 11/24/22 11/24/22 History traZODone HCL [Desyrel] 50 mg PO HS PRN 11/24/22 11/24/22 History Allergies Allergy/AdvReac Type Severity Reaction Status Date / Time No Known Allergies Allergy Verified 11/24/22 20:17 Physical Exam Vitals: Vital Signs Temp Pulse Resp BP Pulse Ox 10/20/23 06:06 73 16 131/76 96 10/20/23 03:25 97.8 F 84 16 124/73 96 10/19/23 21:44 98.6 F 77 16 142/80 95 Intake and Output 10/19/23 10/20/23 10/20/23 22:59 06:59 14:59 Other: Weight 99.79 kg Results CBC & Chem 7: 10/19/23 22:36 10/19/23 22:36 Labs: Abnormal Lab Results - Last 24 Hours (Table) 10/19/23 10/19/23 Range/Units 22:36 22:36 Hgb 10.6 L (11.4-16.0) gm/dL RDW 21.2 H (11.5-15.5) % Plt Count 99 L (150-450) k/uL Potassium 3.4 L (3.5-5.1) mmol/L Chloride 109 H (98-107) mmol/L BUN 2 L (7-17) mg/dL Creatinine 0.51 L (0.52-1.04) mg/dL Glucose 137 H (74-99) mg/dL Calcium 8.2 L (8.4-10.2) mg/dL Total Bilirubin 2.0 H (0.2-1.3) mg/dL AST 175 H (14-36) U/L Alkaline Phosphatase 136 H (38-126) U/L Total Protein 8.4 H (6.3-8.2) g/dL Albumin 3.3 L (3.5-5.0) g/dL Serum Alcohol 377 H* mg/dL Assessment and Plan Assessment: 43-year-old female with hypertension diabetes mellitus alcohol dependence and abuse coming in for alcohol intoxication seeking help with quitting drinking I discussed case with ED doctor and accepted the admission for acute severe alcohol intoxication pending alcohol withdrawal with anticipated length of stay more than 2 midnights Acute severe alcohol intoxication with alcohol dependence Monitor for alcohol withdrawal syndrome Benzos per CIWA scale Thiamine daily Seizure precautions IV fluid hydration normal saline 75 cc/h fall precautions Elevated liver enzymes Most likely secondary to alcohol abuse Continue to monitor Diabetes mellitus Insulin sliding scale Hyperlipidemia Elevated liver enzymes Hold statin DVT prophylaxis heparin subcu 3 times daily 5000 units Full code GI prophylaxis continue with omeprazole
[2023-10-20] MEDS: lisinopriL 5 MG TAB PO SCH (09:02)
[2023-10-20] MEDS: FLUoxetine HCL 20 MG CAP PO SCH (09:02)
[2023-10-20 12:03] LABS: Glucose,Whole Blood 119 mg/dL (70-110)
[2023-10-20 13:21] LABS: Glucose,Whole Blood 157 mg/dL (70-110)
[2023-10-20] MEDS: INSULIN ASPART (NovoLOG) 100 UNIT/ML VIAL SQ SCH (13:29)
[2023-10-20] MEDS: LORazepam 2 MG/ML INJ IV PRN (14:11)
[2023-10-20 17:26] LABS: Glucose,Whole Blood 83 mg/dL (70-110)
[2023-10-20] MEDS: traZODone HCL 50 MG TAB PO SCH (20:20)
[2023-10-20 20:21] LABS: Glucose,Whole Blood 97 mg/dL (70-110)
[2023-10-21] MEDS: ACETAMINOPHEN TAB 325 MG TAB PO PRN (00:21)
[2023-10-21] MEDS: SODIUM CHLORIDE 0.65% NASAL SPRAY 44 ML BTL NASAL PRN (04:23)
[2023-10-21 05:54] LABS: Glucose,Whole Blood 97 mg/dL (70-110)
[2023-10-21] MEDS: PANTOPRAZOLE 40 MG TABLET PO SCH ×2 (06:19)
[2023-10-21 09:22] LABS: ALT 19 U/L (4-34); AST 109 U/L (14-36); African American GFR (CKD) >90 (>60 ml/min/1.73 sqM); Albumin 2.5 g/dL (3.5-5.0); Alkaline Phosphatase 111 U/L (38-126); Anion Gap 0 mmol/L; Blood Urea Nitrogen 4 mg/dL (7-17); Calcium 7.4 mg/dL (8.4-10.2); Carbon Dioxide 29 mmol/L (22-30); Chloride 109 mmol/L (98-107); Glucose 90 mg/dL (74-99); Non-African American GFR(CKD) >90 (>60 ml/min/1.73 sqM); Potassium 3.1 mmol/L (3.5-5.1); Sodium 138 mmol/L (137-145); Total Bilirubin 2.5 mg/dL (0.2-1.3); Total Protein 6.9 g/dL (6.3-8.2)
[2023-10-21] MEDS: LORATADINE 10 MG TAB PO SCH (09:32)
[2023-10-21] MEDS: LOSARTAN 25 MG TAB PO SCH (09:32)
[2023-10-21] MEDS: CLOBETASOL PROP 0.05% CR 15GM TOPICAL SCH (09:32)
[2023-10-21] MEDS: ATORVASTATIN 10 MG TAB PO SCH (09:32)
[2023-10-21 10:16] LABS: Anisocytosis Moderate; Basophils % (A) 1 %; Eosinophils # (A) 0.1 k/uL (0-0.7); Eosinophils % (A) 2 %; HCT 30.1 % (34.0-46.0); Hypochromasia Marked; Lymphocytes # (A) 0.8 k/uL (1.0-4.8); Lymphocytes % (A) 38 %; MCH 26.8 pg (25.0-35.0); MCHC 30.2 g/dL (31.0-37.0); MCV 88.6 fL (80.0-100.0); Mean Platelet Volume 8.3; Microcytosis Slight; Monocytes # (A) 0.1 k/uL (0-1.0); Monocytes % (A) 5 %; Neutrophils # (A) 1.1 k/uL (1.3-7.7); Neutrophils % (A) 52 %; RDW 21.4 % (11.5-15.5); WBC 2.1 k/uL (3.8-10.6)
[2023-10-21 10:26] LABS: HGB 9.1 gm/dL (11.4-16.0); Platelet Count 63 k/uL (150-450)
[2023-10-21] MEDS: MAGNESIUM SULFATE-D5W PMX 1 GM in DEXTROSE/WATER 1 100ML.BAG IVPB SCH (10:56)
[2023-10-21] MEDS: POTASSIUM CHLORIDE ER 20 MEQ TAB.ER PO STA (10:56)
--- NOTE | 2023-10-21 11:00 | P.PN ---
Subjective Progress Note Date: 10/21/23 43 year old F with PMH of DM, HTN and chronic alcohol abuse presents to the ED for alcohol intoxication. Her last drink was prior to coming to the hospital. In the ED she underwent extensive evaluation. BP 142/80, HR 77, T 98.6F, RR 16, 95% on RA. CBC and CMP significant for Hg 10.6, Plt 99, K 3.4 Cl 109, BUN 2, Cr 0.51, glu 137, Ca 8.2, T. Bili 2, AST 175, alk phos 136, alb 3.3. EtOH 377. Mag 1.6. Admitted for further management of symptoms. 10/20 Patient was seen and examined. She reports a throbbing headache. Interested in [place]. States drinks 24 cans of beer daily. She has received 5 mg IV Ativan over the past 24H. CIWA is at 8. CBC and CMP done significant for WBC 21, Hg 9.1, Hct 30.1, Plt 63, K 3.1, Cl 109, BUN 4, Cr 0.44, Ca 7.4, T. Bili 2.5, AST 109, alb 2.5. General: tremors notes bilateral UE, appears at stated age Derm: warm, dry Head: atraumatic, normocephalic, symmetric Eyes: EOMI, no lid lag, anicteric sclera Mouth: no lip lesion, mucus membranes moist Cardiovascular: S1S2 reg, no murmur Lungs: CTA bilateral, no rhonchi, no rales , no accessory muscle use Ext: no gross muscle atrophy, 1+ edema LLE, no contractures Neuro: no focal neuro deficits Psych: Alert, oriented, appropriate affect Based on my assessment of this patient, this patient meets a high complexity level of care. #Alcohol withdrawal: CIWA protocol with Ativan PRN per protocol. Start Librium 25 mg PO TID. Telemetry monitoring. Monitor for respiratory depression. #LLE swelling: Venous duplex to rule out DVT. #Hypokalemia: KCl 40 meq PO x 1. #Hypomagnesemia: Mag sulfate 4g IV x 1. #Pancytopenia likely due to EtOH abuse #Transaminitis likely due to EtOH abuse #Thoracic aortic aneurysm: Seen on CTA chest 09/2022. Follow up Vascular Sx in the outpatient setting. Resolved: Alcohol intoxication CODE STATUS: FULL CODE DVT Prophylaxis: Lovenox GI Prophylaxis: Protonix Designated medical POA if patient is not able to make medical decisions for themselves: I have reviewed the following eyewear consultant notes: I have reviewed the results of the following tests: CBC, CMP I have ordered the following tests: CBC, Mag and BMP in the AM. Venous duplex. I have discussed the care of this patient with the following independent historian: RN, case management I have independently interpreted the following test below: I have discussed the management of this patient with the following physician: Objective - Vital Signs Vital signs: Vital Signs Temp 98.2 F 10/21/23 08:40 Pulse 78 10/21/23 08:40 Resp 16 10/21/23 08:40 BP 137/79 10/21/23 08:40 Pulse Ox 97 10/21/23 08:40 FiO2 Intake & Output 10/20/23 10/21/23 10/21/23 18:59 06:59 18:59 Intake Total 1680 Balance 1680 Weight 99.79 kg Intake: Intake, IV Titration 600 Amount Sodium Chloride 0.9% 1, 600 000 ml @ 75 mls/hr IV . [id number] [facility] Rx#:[id number] Oral 1080 Other: Voiding Method Toilet - Labs CBC & Chem 7: 10/21/23 09:53 10/21/23 08:38 Labs: Abnormal Lab Results - Last 24 Hours (Table) 10/20/23 10/20/23 10/21/23 Range/Units 12:00 13:18 08:38 WBC (3.8-10.6) k/uL RBC (3.80-5.40) m/uL Hgb (11.4-16.0) gm/dL Hct (34.0-46.0) % MCHC (31.0-37.0) g/dL RDW (11.5-15.5) % Plt Count (150-450) k/uL Neutrophils # (1.3-7.7) k/uL Lymphocytes # (1.0-4.8) k/uL Potassium 3.1 L (3.5-5.1) mmol/L Chloride 109 H (98-107) mmol/L BUN 4 L (7-17) mg/dL Creatinine 0.44 L (0.52-1.04) mg/dL POC Glucose (mg/dL) 119 H 157 H (70-110) mg/dL Calcium 7.4 L (8.4-10.2) mg/dL Total Bilirubin 2.5 H (0.2-1.3) mg/dL AST 109 H (14-36) U/L Albumin 2.5 L (3.5-5.0) g/dL 10/21/23 Range/Units 09:53 WBC 2.1 L (3.8-10.6) k/uL RBC 3.40 L (3.80-5.40) m/uL Hgb 9.1 L D (11.4-16.0) gm/dL Hct 30.1 L (34.0-46.0) % MCHC 30.2 L (31.0-37.0) g/dL RDW 21.4 H (11.5-15.5) % Plt Count 63 L (150-450) k/uL Neutrophils # 1.1 L (1.3-7.7) k/uL Lymphocytes # 0.8 L (1.0-4.8) k/uL Potassium (3.5-5.1) mmol/L Chloride (98-107) mmol/L BUN (7-17) mg/dL Creatinine (0.52-1.04) mg/dL POC Glucose (mg/dL) (70-110) mg/dL Calcium (8.4-10.2) mg/dL Total Bilirubin (0.2-1.3) mg/dL AST (14-36) U/L Albumin (3.5-5.0) g/dL
[2023-10-21 11:51] LABS: Glucose,Whole Blood 106 mg/dL (70-110)
--- NOTE | 2023-10-21 13:11 | US ---
EXAMINATION TYPE: US venous doppler duplex LE LT DATE OF EXAM: 10/21/2023 12:36 PM COMPARISON: NONE CLINICAL INDICATION: Female, 43 years old with history of swelling; pain and swelling in left leg, no h/o dvt SIDE PERFORMED: Left TECHNIQUE: The lower extremity deep venous system is examined utilizing real time linear array sonog royal with graded compression, doppler sonography and color-flow sonography. VESSELS IMAGED: Common Femoral Vein Deep Femoral Vein Greater Saphenous Vein * Femoral Vein Popliteal Vein Small Saphenous Vein * Proximal Calf Veins (* superficial vessels) Left Leg: Negative for DVT IMPRESSION: Grayscale, color doppler, spectral doppler imaging performed of the deep veins of the lo wer extremities. There is normal flow, compressibility, vascular waveforms.
[2023-10-21] MEDS: chlordiazePOXIDE 25 MG CAP PO SCH (14:50)
[2023-10-21 16:40] LABS: Glucose,Whole Blood 127 mg/dL (70-110)
[2023-10-21 20:15] LABS: Glucose,Whole Blood 143 mg/dL (70-110)
[2023-10-22 05:35] LABS: Glucose,Whole Blood 90 mg/dL (70-110)
[2023-10-22 06:02] LABS: African American GFR (CKD) >90 (>60 ml/min/1.73 sqM); Anion Gap 5 mmol/L; Blood Urea Nitrogen 4 mg/dL (7-17); Calcium 7.3 mg/dL (8.4-10.2); Carbon Dioxide 22 mmol/L (22-30); Chloride 112 mmol/L (98-107); Glucose 89 mg/dL (74-99); Non-African American GFR(CKD) >90 (>60 ml/min/1.73 sqM); Potassium 3.6 mmol/L (3.5-5.1); Sodium 139 mmol/L (137-145)
[2023-10-22 06:05] LABS: Anisocytosis Moderate; HCT 29.7 % (34.0-46.0); HGB 9.1 gm/dL (11.4-16.0); Hypochromasia Moderate; MCHC 30.5 g/dL (31.0-37.0); MCV 88.7 fL (80.0-100.0); Mean Platelet Volume 9.6; Microcytosis Slight; RBC 3.35 m/uL (3.80-5.40); RDW 21.5 % (11.5-15.5); WBC 3.1 k/uL (3.8-10.6)
[2023-10-22 06:06] LABS: Platelet Count 54 k/uL (150-450)
[2023-10-22 08:07] LABS: Glucose,Whole Blood 95 mg/dL (70-110)
[2023-10-22] MEDS: ENOXAPARIN 40 MG/0.4 ML SYRINGE SQ SCH (08:31)
--- NOTE | 2023-10-22 10:24 | P.DS ---
Providers Date of admission: 10/20/23 02:15 Expected date of discharge: 10/22/23 Attending physician: Berry Barton MD Primary care physician: Robert Mahan [facility] Course: 43 year old F with PMH of DM, HTN and chronic alcohol abuse presents to the ED for alcohol intoxication. Her last drink was prior to coming to the hospital. In the ED she underwent extensive evaluation. BP 142/80, HR 77, T 98.6F, RR 16, 95% on RA. CBC and CMP significant for Hg 10.6, Plt 99, K 3.4 Cl 109, BUN 2, Cr 0.51, glu 137, Ca 8.2, T. Bili 2, AST 175, alk phos 136, alb 3.3. EtOH 377. Mag 1.6. Admitted for further management of symptoms. 10/20 Patient was seen and examined. She reports a throbbing headache. Interested in [place]. States drinks 24 cans of beer daily. She has received 5 mg IV Ativan over the past 24H. CIWA is at 8. CBC and CMP done significant for WBC 2.1, Hg 9.1, Hct 30.1, Plt 63, K 3.1, Cl 109, BUN 4, Cr 0.44, Ca 7.4, T. Bili 2.5, AST 109, alb 2.5. 10/21 Patient was seen and examined. Started on Librium 25 mg PO TID yesterday. Received 1 mg of Ativan IV overnight. Reports fatigue. CBC and BMP done significant for WBC 3.1, Hg 9.1, Hct 29.7, Plt 54, Cl 112, BUN 4, Cr 0.46, Ca 7.3. Venous doppler negative for DVT. Plans for discharge home today with Ativan PRN until she can get into [place]. She is motivated to quit drinking. Advised not to mix ativan and alcohol as it could lead to respiratory depression and sudden . Follow up with PCP within 1-2 days and Vascular surgery within 1 month for surveillance of thoracic aortic aneurysm. General: no distress, appears at stated age Derm: warm, dry Head: atraumatic, normocephalic, symmetric Eyes: EOMI, no lid lag, anicteric sclera Mouth: no lip lesion, mucus membranes moist Cardiovascular: good distal perfusion in all 4 extremities Lungs: breathing comfortably, no accessory muscle use Ext: no gross muscle atrophy, 1+ edema LLE, no contractures Neuro: no focal neuro deficits Psych: Alert, oriented, appropriate affect Discharge Diagnosis #Alcohol withdrawal #LLE swelling #Hypokalemia #Hypomagnesemia #Pancytopenia likely due to EtOH abuse #Transaminitis likely due to EtOH abuse #Thoracic aortic aneurysm Resolved: Alcohol intoxication This complex discharge took 35 minutes to complete. Patient Condition at Discharge: Stable Plan - Discharge Summary Discharge Rx Participant: No New Discharge Prescriptions: New LORazepam [Ativan] 1 mg PO TID PRN 3 Days #9 tab PRN Reason: Alcohol Withdrawal Continue FLUoxetine HCL [PROzac] 40 mg PO DAILY Clobetasol Propionate [Temovate 0.05% Oint] 1 applic TOPICAL BID Rosuvastatin Calcium 5 mg PO DAILY Losartan [Cozaar] 25 mg PO DAILY Meclizine [Antivert] 25 mg PO TID Sennosides [Senokot] 8.6 mg PO DAILY Tirzepatide [Mounjaro] 2.5 mg SQ WEEKLY traZODone HCL [Desyrel] 50 mg PO HS Clobetasol Propionate [Temovate 0.05% Cream] 1 applic TOPICAL DAILY Dapagliflozin Propanediol [Farxiga] 10 mg PO DAILY Ferrous Sulfate [Iron (65 MG Elemental)] 325 mg PO DAILY Fexofenadine HCl [Niurka Allergy] 180 mg PO DAILY Folic Acid 1 mg PO DAILY Omeprazole [PriLOSEC] 20 mg PO DAILY Discharge Medication List FLUoxetine HCL [PROzac] 40 mg PO DAILY 03/10/20 [History] Clobetasol Propionate [Temovate 0.05% Cream] 1 applic TOPICAL DAILY 11/24/22 [History] Clobetasol Propionate [Temovate 0.05% Oint] 1 applic TOPICAL BID 11/24/22 [History] Dapagliflozin Propanediol [Farxiga] 10 mg PO DAILY 11/24/22 [History] Rosuvastatin Calcium 5 mg PO DAILY 11/24/22 [History] traZODone HCL [Desyrel] 50 mg PO HS 11/24/22 [History] Ferrous Sulfate [Iron (65 MG Elemental)] 325 mg PO DAILY 10/20/23 [History] Fexofenadine HCl [Niukra Allergy] 180 mg PO DAILY 10/20/23 [History] Folic Acid 1 mg PO DAILY 10/20/23 [History] Losartan [Cozaar] 25 mg PO DAILY 10/20/23 [History] Meclizine [Antivert] 25 mg PO TID 10/20/23 [History] Omeprazole [PriLOSEC] 20 mg PO DAILY 10/20/23 [History] Sennosides [Senokot] 8.6 mg PO DAILY 10/20/23 [History] Tirzepatide [Mounjaro] 2.5 mg SQ WEEKLY 10/20/23 [History] LORazepam [Ativan] 1 mg PO TID PRN 3 Days #9 tab 10/22/23 [Rx] Follow up Appointment(s)/Referral(s): Robert Mahan MD [Primary Care Provider] - 1-2 days Roberto Torres DO [STAFF PHYSICIAN] - 4 Weeks Discharge/Stand Alone Forms: AA Meetings [place], Who Do I Call?, Outpatient Counseling, In Substance Abuse Facilities
[2023-10-22 12:10] LABS: Glucose,Whole Blood 100 mg/dL (70-110)
[2023-10-22 13:15] VITALS: BP 142/80; PULSE 74; RESP 20; TEMP 98
[2023-10-22] MEDS: ONDANSETRON 4 MG/2 ML VIAL IVP PRN (13:16)
== END 2023-10-22 15:04 | disposition home or self-care (01) ==
LOC: EC 21:37 → 6NMEDSUR 10-20 02:15 → 3SCARD 10-20 18:55 → 5NMEDONC 10-22 07:07
PROVIDERS: ADMIT Internal Medicine; ATTEND Internal Medicine
DX: F10.229 Alcohol dependence with intoxication, unspecified (principal); F10.239 Alcohol dependence with withdrawal, unspecified; E87.6 Hypokalemia; E83.42 Hypomagnesemia; D61.818 Other pancytopenia; I71.20 Thoracic aortic aneurysm, without rupture, unspecified; Y90.8 Blood alcohol level of 240 mg/100 ml or more; I10 Essential (primary) hypertension; R74.01 Elevation of levels of liver transaminase levels; E11.9 Type 2 diabetes mellitus without complications; E78.5 Hyperlipidemia, unspecified; L40.9 Psoriasis, unspecified; R22.42 Localized swelling, mass and lump, left lower limb; Z79.84 Long term (current) use of oral hypoglycemic drugs; Z79.85 Long-term (current) use of injectable non-insulin antidiabetic drugs; Z79.899 Other long term (current) drug therapy; Z87.891 Personal history of nicotine dependence
CPT/HCPCS: 96372; 96375 ×2; 96376 ×3; 96361 ×2; 96365; 96366; 99285; 36415; 80053 ×2; 80048; 82150; 83690; 83735 ×2; 85025 ×2; 85027; 83036; 93971; G0378 ×5; G0480; J2060 ×2; J2405; J1650; J3475; 80320